=== PATIENT | male | born 1960 | race Caucasian/White ===

== ENCOUNTER 2020-04-05 14:48 | Outpatient (REF) | payer OTHER, SELFPAY | END 2020-04-05 14:49 | disposition home or self-care (01) | LOC: HO.HAP 14:48 | PROVIDERS: Visit Provider Internal Medicine | DX: Z46.1 Encounter for fitting and adjustment of hearing aid (principal) | CPT/HCPCS: V5266 ==

== ENCOUNTER 2020-05-07 12:16 | Outpatient (REF) | payer OTHER, SELFPAY | END 2020-05-07 12:17 | disposition home or self-care (01) | LOC: HO.LAB 12:16 | PROVIDERS: Visit Provider Internal Medicine | DX: Z20.822 Contact with and (suspected) exposure to COVID-19 (principal) | CPT/HCPCS: 36415; C9803; U0003; U0005 ==

== ENCOUNTER 2020-05-09 14:02 | Outpatient (REF) | payer OTHER, SELFPAY | END 2020-05-09 14:03 | disposition home or self-care (01) | LOC: HO.HAP 14:02 | PROVIDERS: Visit Provider Internal Medicine | DX: Z46.1 Encounter for fitting and adjustment of hearing aid (principal) | CPT/HCPCS: V5266 ==

== ENCOUNTER 2020-06-04 09:01 | Outpatient (REF) | payer OTHER, SELFPAY | END 2020-06-04 09:02 | disposition home or self-care (01) | LOC: HO.LAB 09:01 | PROVIDERS: Visit Provider Internal Medicine | DX: Z20.822 Contact with and (suspected) exposure to COVID-19 (principal) | CPT/HCPCS: 36415; C9803; U0003; U0005 ==

== ENCOUNTER 2020-07-03 10:22 | Outpatient (REF) | payer OTHER, SELFPAY ==
[2020-07-03 11:29] LABS: Alanine Aminotransferase 25 U/L (0-40); Albumin Level 4.3 g/dL (3.5-5.0); Alkaline Phosphatase 50 U/L (39-117); Anion Gap 13 (12-20); Aspartate Amino Transferase 19 U/L (5-37); Bilirubin Total 0.7 mg/dL (0.0-1.0); Blood Urea Nitrogen 12 mg/dL (9-16); Calcium 9.2 mg/dL (8.4-10.2); Carbon Dioxide 29 mmol/L (22-29); Chloride 104 mmol/L (96-108); Cholesterol 233 mg/dL; Estimated Glomerular Filt Rate > 60; Glucose Fasting 103 mg/dL (60-99); HDL Cholesterol 36 mg/dL; LDL Cholesterol Calculated 136 mg/dl; Potassium 4.7 mmol/L (3.3-5.1); Sodium 141 mmol/L (135-145); Triglycerides 306 mg/dL
[2020-07-03 12:01] LABS: Folate 9.4 ng/mL (> or = 4.0); Vitamin B12 299 pg/mL (200-900)
[2020-07-03 12:06] LABS: Creatinine Urine 143.97 mg/dL; Microalbum/Creatinine Ratio Ur 10.4 ug/mg cr
== END 2020-07-03 10:23 | disposition home or self-care (01) ==
LOC: HO.LAB 10:22
PROVIDERS: PCP Internal Medicine; Visit Provider Internal Medicine
DX: E11.9 Type 2 diabetes mellitus without complications (principal); E78.5 Hyperlipidemia, unspecified
CPT/HCPCS: 36415; 80053; 80061; 82043; 82607; 82746

== ENCOUNTER 2020-09-17 12:09 | Outpatient (REF) | payer OTHER, SELFPAY ==
--- NOTE | 2020-09-17 13:52 | MHC.AU.FUR ---
Hearing Instrument Follow-Up Date of Visit: 09/17/20 Milk Bottling Machine Operator Used: Not Applicable Right Ear: Electronic Instrument Trades Worker: Elba Model: tradeNOW IQ i1600 P+ BTE-13 Serial Number: [id number] Repair Warranty: 04/09/2021 Loss and Damage Warranty: Battery Size: 13 Color: Bronze Tubing: Tube Lock Type of Dome: Type of Mold: Westone Shell - THE EARMOLD HAS BEEN MODIFIED BY PATIENT (OR OTHER) TO BE A CANAL STYLE. Type of Wax Guard: Dispensed By: [facility] Date of Fittin02/12/2018 Follow-Up Summary: Right hearing aid was dropped off. Noted said aid not working and earmold tubing broke. The hearing aid casing is severly damaged in several areas. The tubing is broken at the opening of earmold. The original order showed a shell style; however, the mold has been modified by someone (patient has not been seen in this office since day of fitting in 2018) to be a canal style. Sending right aid out for repair under warranty. Right ear mold re-tubed and in ear mold drawer. ADVISE MAKING NEW EARMOLD(S) 12 batteries dispensed today. Recommendations: Sending right aid out for repair under warranty. Right ear mold re-tubed and in ear mold drawer. Call when repair in. Diagnosis Code(s): Primary Diagnosis: H90.6 Mixed Hearing Loss, Bilateral Services Performed: Number of Individual Battery Cells: 12 YOO Non-Quantity Charges: HACHECKM (MH>1 yr or new to us) Face to Face appointment Signature: Provider: Saida Dias, CCC-A
== END 2020-09-17 12:10 | disposition home or self-care (01) ==
LOC: HO.HAP 12:09
PROVIDERS: Visit Provider Internal Medicine
DX: Z46.1 Encounter for fitting and adjustment of hearing aid (principal); H90.6 Mixed conductive and sensorineural hearing loss, bilateral
CPT/HCPCS: 92592; V5266

== ENCOUNTER 2020-09-27 10:26 | Outpatient (REF) | payer OTHER, SELFPAY ==
--- NOTE | 2020-09-27 12:26 | MHC.AU.HFU ---
Hearing Instrument Follow-Up- Binaural Date of Visit: 09/27/20 Input Output Clerk Used: Luxembourgish- In Person Right Ear: News Production Supervisor: Elba Model: [place] IQ i1600 P+ BTE-13 Serial Number: [id number] Repair Warranty: 04/09/2021 Battery Size: 13 Color: Bronze Tubing: Tube Lock Type of Mold: Westone Shell - THE EARMOLD HAS BEEN MODIFIED BY PATIENT (OR OTHER) TO BE A CANAL STYLE. Dispensed By: [facility] Date of Fittin02/12/2018 Left Ear: News Production Supervisor: Elba Model: [place] IQ i1600 P+ BTE-13 Serial Number: [id number] Repair Warranty: 04/09/2017 Battery Size: 13 Color: Bronze Tubing: Tube Lock Type of Mold: Westone Shell Dispensed By: [facility] Date of Fittin02/12/2018 Follow-Up Summary: Patient picked up the LEFT repaired aid. When looking at aids, both aids had blue markers and patient was wearing the [id number] aid in the left ear with an old 1/2 shell mold. The re-tubed mold brought in the [id number] was also for the left ear. Patient said he had switched the aids when the one brought in to be repaired on 09/17/20, but does not have the right earmold. Took impressions for both ears today without complication and ordered Canal Shell molds requesting to made more like a Half Shell. Patient is using the [id number] aid on the left ear with the old earmold. Patient has the right aid and will bring to next visit. BOTH AIDS SET TO LAST 2018 SETTINGS. Recommendations: Recommendations (Other): Schedule EM fitting when received. Patient has the right aid and will bring to next visit. Diagnosis Code(s): Primary Diagnosis: H90.6 Mixed Hearing Loss, Bilateral Services Performed: Ear Impression (Quantity): 2 Signature: Provider: Saida Dias, [facility]
== END 2020-09-27 10:27 | disposition home or self-care (01) ==
LOC: HO.HAP 10:26
PROVIDERS: Visit Provider Internal Medicine
DX: Z46.1 Encounter for fitting and adjustment of hearing aid (principal); H90.6 Mixed conductive and sensorineural hearing loss, bilateral
CPT/HCPCS: V5275

== ENCOUNTER 2020-10-23 09:04 | Outpatient (REF) | payer OTHER, SELFPAY | END 2020-10-23 09:05 | disposition home or self-care (01) | LOC: HO.HAP 09:04 | PROVIDERS: Visit Provider Internal Medicine | DX: Z46.1 Encounter for fitting and adjustment of hearing aid (principal); H90.6 Mixed conductive and sensorineural hearing loss, bilateral | CPT/HCPCS: V5264; V5266 ==

== ENCOUNTER 2021-01-07 21:13 | Inpatient (IN) | payer OTHER, SELFPAY ==
[2021-01-07 21:20] VITALS: BP 161/98; PULSE 108; RESP 16; O2SAT 96; BMI 24.6
--- NOTE | 2021-01-07 21:20 | ECG_ITS ---
Test Reason : AFIB Blood Pressure : / mmHG Vent. Rate : 111 BPM Atrial Rate : 098 BPM P-R Int : 000 ms QRS Dur : 102 ms QT Int : 356 ms P-R-T Axes : 000 028 012 degrees QTc Int : 484 ms Atrial fibrillation with rapid ventricular response with premature ventricular or aberrantly conducted complexes Nonspecific T wave abnormality Abnormal ECG When compared with ECG of 18-JAN-2019 15:17, Atrial fibrillation has replaced Sinus rhythm Vent. rate has increased BY 50 BPM Nonspecific T wave abnormality now evident in Inferior leads Nonspecific T wave abnormality now evident in Lateral leads Referred By: Konrad Smalls Electronically Signed By:DEEJAY MIRANDA MD
--- NOTE | 2021-01-07 21:34 | ED_ITS ---
HPI - Arrhythmia/Palpitations General Chief Complaint: Arrhythmia/Palpitations Stated Complaint: Dizzines, nausea, vomiting Time Seen by Provider: 01/07/21 21:32 Source: patient Mode of arrival: ambulatory Limitations: no limitations and language barrier History of Present Illness HPI narrative: Patient history of hypertension hyperlipidemia Diabetes TIAs been having off and on palpitations for last 2 months and chest discomfort . Has not seen e commerce web developer lately last visit was 6 months ago for last 4 hours patient having more palpitations and shortness of breath patient checked his blood pressure was elevated along with heart rate. On arrival patient was tachycardic with AFib with heart rate reaching 118 , nauseated and had cold sweats patient has not seen any e commerce web developer for this palpitation on arrival monitor car operator showed heart rate of 108 atrial fibrillation Related Data Previous Rx's Medication Instructions Recorded aspirin 81 mg tablet,delayed 81 mg PO DAILY 90 Days #90 tab 04/05/20 release (Adult Low Dose Aspirin) atorvastatin 80 mg tablet 80 mg PO BEDTIME 90 Days #90 tab 04/05/20 carvedilol 12.5 mg tablet 12.5 mg PO BID 90 Days #180 tab 04/05/20 fenofibrate 54 mg tablet 54 mg PO DAILY 90 Days #90 tab 04/05/20 lisinopril 20 mg tablet 20 mg PO DAILY 90 Days #90 tab 04/05/20 meclizine 25 mg tablet 25 mg PO TID PRN 30 Days #90 tab 04/05/20 metformin 500 mg tablet 500 mg PO BID 90 Days #180 tab 04/05/20 metoprolol tartrate 100 mg tablet 100 mg PO BID 90 Days #180 tab 04/05/20 ropinirole 0.5 mg tablet 0.5 mg PO BEDTIME 90 Days #90 tab 04/05/20 trazodone 50 mg tablet 50 mg PO BEDTIME PRN 90 Days #90 04/05/20 tab ezetimibe 10 mg tablet 10 mg PO DAILY 90 Days #90 tab 09/17/20 Allergies Allergy/AdvReac Type Severity Reaction Status Date / Time No Known Allergies Allergy Verified 04/05/20 15:28 [No Known Allergies*] Review of Systems Review of Systems: Yes all other systems are reviewed and are negative PMFSH Past Medical History Medical History CVA (cerebral vascular accident) Diabetes mellitus Essential hypertension Mixed hyperlipidemia Restless leg syndrome Vertigo Surgical History No pertinent past surgical history Family History Family History Father CVD (cardiovascular disease) Hypertension Mother Hypertension Stroke Sister CVD (cardiovascular disease) Hypertension Son No problems noted. Daughter No problems noted. Social History Social History Alcohol intake: never Patient Tobacco Use Status: Never used Tobacco Use of substances other than those prescribed or required for medical reasons: No Advance Directives: No Advance Directives Information Provided: No Physical Exam Vital Signs: Vital Signs: Last Vital Signs Temp 98.6 F 01/08/21 00:38 Pulse 89 01/08/21 00:38 Resp 18 01/08/21 00:38 BP 112/75 01/08/21 00:38 Pulse Ox 97 01/08/21 00:38 Body Mass Index 24.6 Appearance: Alert. Oriented X3. No acute distress. Eyes: No pallor or icterus ENT: Pharynx normal. Oral Mucosa moist Neck: Normal inspection. Neck supple. CVS: Irregularly irregular tachycardia. Pulses normal. Respiratory: No respiratory distress. Equal air entry bilateral, no wheezing/rales/rhonchi Abdomen: Soft and nontender. Bowel sounds are present, no mass palpable, no CVA tenderness Skin: Skin warm and dry. Normal skin color. Normal skin turgor. Extremities: No lower extremity edema. No calf tenderness Neuro: Oriented X 3. No motor deficit. No sensory deficit.No cerebellar signs , cranial nerves II-XII intact MDM - Arrhythmia/Palpitations MDM Narrative Medical decision making narrative: Patient with new onset of atrial fibrillation chads 2 Vasc score of 4 started on Eliquis patient heart rate him approved after 1 dose of Cardizem at this time patient has atrial fibrillation with heart rate staying less than 100 denies any chest pain will admit patient for new onset atrial fibrillation, patient already on metoprolol 100 mg twice daily Lab Data Attestation: I reviewed the patient's lab results. Result diagrams: 01/07/21 21:36 01/07/21 21:36 Labs: Lab Results 1001/07/21 01/07/21 Range/Units 21:36 21:36 21:36 WBC 8.3 (4.8-10.8) X10*3/uL RBC 4.73 (4.60-5.80) X10*6/uL Hgb 13.7 L (14.0-18.0) g/dl Hct 41.4 L (42-52) % MCV 87.5 (80-98) fL MCH 29.0 (27.0-33.0) pg MCHC 33.1 (31.0-36.0) g/dl RDW 12.6 (11.0-16.0) % Plt Count 244 (160-400) X10*3/uL MPV 11.7 (9.4-12.4) fL Immature Gran % (Auto) 0.2 (0.0-0.4) % Neut % (Auto) 62.8 (45-73) % Lymph % (Auto) 28.5 (20-40) % [place] % (Auto) 6.1 (2-11) % Eos % (Auto) 2.0 (0-4) % Baso % (Auto) 0.4 (0-2) % Lymph # (Auto) 2.4 (1.2-4.9) X10*3/uL [place] # (Auto) 0.5 (0.1-1.2) X10*3/uL Eos # (Auto) 0.2 (0.0-0.4) X10*3/uL Baso # (Auto) 0.0 (0.0-0.2) X10*3/uL Abs Immat Gran (auto) 0.02 (0.00-0.03) X10*3/uL Absolute Neuts (auto) 5.2 (2.0-8.3) X10*3/uL Absolute Nucleated RBC 0.000 (0.0-0.012) X10*3/uL Nucleated RBC % (auto) 0.0 (0.0-0.2) /100WBC PT (9.9-13.0) SEC INR (0.9-1.1) APTT (24.1-38.0) SEC Sodium 140 (135-145) mmol/L Potassium 4.0 (3.3-5.1) mmol/L Chloride 106 (96-108) mmol/L Carbon Dioxide 26 (22-29) mmol/L Anion Gap 12 (12-20) BUN 12 (9-16) mg/dL Creatinine 1.02 (0.5-1.4) mg/dL Estim Creat Clear Calc 70.3 Estimated GFR > 60 Random Glucose 111 (60-115) mg/dL Calcium 9.4 (8.4-10.2) mg/dL Total Bilirubin 0.7 (0.0-1.0) mg/dL AST 18 (5-37) U/L ALT 22 (0-40) U/L Alkaline Phosphatase 53 (39-117) U/L Troponin I High Sens < 3.5 (<3.5-35.0) ng/L Total Protein 8.4 H (6.5-8.0) g/dL Albumin 4.5 (3.5-5.0) g/dL COVID-19 (DEYANIRA) (Negative) COVID-19 Clin Com 01/07/21 01/08/21 Range/Units 21:36 00:37 WBC (4.8-10.8) X10*3/uL RBC (4.60-5.80) X10*6/uL Hgb (14.0-18.0) g/dl Hct (42-52) % MCV (80-98) fL MCH (27.0-33.0) pg MCHC (31.0-36.0) g/dl RDW (11.0-16.0) % Plt Count (160-400) X10*3/uL MPV (9.4-12.4) fL Immature Gran % (Auto) (0.0-0.4) % Neut % (Auto) (45-73) % Lymph % (Auto) (20-40) % [place] % (Auto) (2-11) % Eos % (Auto) (0-4) % Baso % (Auto) (0-2) % Lymph # (Auto) (1.2-4.9) X10*3/uL [place] # (Auto) (0.1-1.2) X10*3/uL Eos # (Auto) (0.0-0.4) X10*3/uL Baso # (Auto) (0.0-0.2) X10*3/uL Abs Immat Gran (auto) (0.00-0.03) X10*3/uL Absolute Neuts (auto) (2.0-8.3) X10*3/uL Absolute Nucleated RBC (0.0-0.012) X10*3/uL Nucleated RBC % (auto) (0.0-0.2) /100WBC PT 11.3 (9.9-13.0) SEC INR 1.0 (0.9-1.1) APTT 27.8 (24.1-38.0) SEC Sodium (135-145) mmol/L Potassium (3.3-5.1) mmol/L Chloride (96-108) mmol/L Carbon Dioxide (22-29) mmol/L Anion Gap (12-20) BUN (9-16) mg/dL Creatinine (0.5-1.4) mg/dL Estim Creat Clear Calc Estimated GFR Random Glucose (60-115) mg/dL Calcium (8.4-10.2) mg/dL Total Bilirubin (0.0-1.0) mg/dL AST (5-37) U/L ALT (0-40) U/L Alkaline Phosphatase (39-117) U/L Troponin I High Sens (<3.5-35.0) ng/L Total Protein (6.5-8.0) g/dL Albumin (3.5-5.0) g/dL COVID-19 (DEYANIRA) Negative (Negative) COVID-19 Clin Com See Note ECG Data Attestation: I personally reviewed and interpreted this ECG as follows: Interpretation: Atrial fibrillation with heart rate of 111 beats per minute nonspecific ST T wave changes no acute ischemia Discharge Plan Discharge Clinical Impression: Atrial fibrillation with rapid ventricular response Chest pain Qualifiers: Chest pain type: precordial pain Qualified Code(s): R07.2 - Precordial pain Patient Disposition: Admitted As Inpatient
[2021-01-07 21:41] LABS: MANUAL DIFF FLAG NO
[2021-01-07 21:42] LABS: Basophils Percent Auto 0.4 % (0-2); Eosinophils Absolute Auto 0.2 X10*3/uL (0.0-0.4); Hematocrit 41.4 % (42-52); Hemoglobin 13.7 g/dl (14.0-18.0); Imm Gran Abs Auto 0.02 X10*3/uL (0.00-0.03); Imm Gran Pct Auto 0.2 % (0.0-0.4); Lymphocytes Absolute Auto 2.4 X10*3/uL (1.2-4.9); Lymphocytes Percent Auto 28.5 % (20-40); Mean Corpuscular HGB Conc 33.1 g/dl (31.0-36.0); Mean Corpuscular Volume 87.5 fL (80-98); Mean Platelet Volume 11.7 fL (9.4-12.4); Monocytes Absolute Auto 0.5 X10*3/uL (0.1-1.2); Monocytes Percent Auto 6.1 % (2-11); Neutrophils Absolute Auto 5.2 X10*3/uL (2.0-8.3); Neutrophils Percent Auto 62.8 % (45-73); Platelet Count 244 X10*3/uL (160-400); Red Blood Count 4.73 X10*6/uL (4.60-5.80); Red Cell Distribution Width 12.6 % (11.0-16.0); White Blood Count 8.3 X10*3/uL (4.8-10.8)
[2021-01-07 21:47] LABS: Prothrombin Time 11.3 SEC (9.9-13.0)
[2021-01-07 21:50] VITALS: BP 157/91; PULSE 105; RESP 20; TEMP 36.5; O2SAT 97
[2021-01-07 21:50] LABS: Partial Thromboplastin Time 27.8 SEC (24.1-38.0)
[2021-01-07 21:57] VITALS: BP 157/91; PULSE 118
[2021-01-07 21:57] LABS: Alanine Aminotransferase 22 U/L (0-40); Albumin Level 4.5 g/dL (3.5-5.0); Alkaline Phosphatase 53 U/L (39-117); Anion Gap 12 (12-20); Aspartate Amino Transferase 18 U/L (5-37); Bilirubin Total 0.7 mg/dL (0.0-1.0); Blood Urea Nitrogen 12 mg/dL (9-16); Calcium 9.4 mg/dL (8.4-10.2); Carbon Dioxide 26 mmol/L (22-29); Chloride 106 mmol/L (96-108); Creatinine Clr Calc Pharmacy 70.3; Estimated Glomerular Filt Rate > 60; Glucose Random 111 mg/dL (60-115); Sodium 140 mmol/L (135-145); Total Protein 8.4 g/dL (6.5-8.0)
[2021-01-07] MEDS: Apixaban 5 MG TABLET PO (21:57)
[2021-01-07] MEDS: dilTIAZem HCL 50 MG/10 ML VIAL 20 MG IVPUSH (21:57)
[2021-01-07] MEDS: Aspirin Enteric Coated 81 MG TABLET.DR 162 MG PO (21:57)
[2021-01-07] MEDS: Nitroglycerin 2 % Oint 1 GM Packet 0.5 INCH TRANSDERMA (21:58)
[2021-01-07 22:03] LABS: Troponin-I High Sensitivity < 3.5 ng/L (<3.5-35.0)
[2021-01-07 22:29] VITALS: BP 117/79; PULSE 64; RESP 17; O2SAT 97
[2021-01-07 23:55] VITALS: BP 120/90; PULSE 90; RESP 18; O2SAT 97
[2021-01-08] VITALS (8 sets, daily range): BP systolic 105–140; BP diastolic 66–107; PULSE 55–89; RESP 14–18; TEMP 36.4–37; O2SAT 97–98
--- NOTE | 2021-01-08 00:27 | P.HPHOSP_ITS ---
History of Present Illness Date of Service: 01/08/21 Chief Complaint: Chest pain/palpitations 61-year-old male with a past medical history of hypertension, hyperlipidemia, diabetes, CVA, restless leg syndrome presented to the hospital with a chief complaint of chest pain/palpitations. Patient reports that over the past 2 months he has been having intermittent episodes of palpitations, denies any associated lightheadedness or dizziness. But has intermittent chest discomfort. Over the past 2 days he has been having increased episodes of chest pain and palpitations; decided to come to the ER for further evaluation. Chest pain is aching in nature, nonradiating, no associated sweating nausea or vomiting. Denies any chest pain at the time of my entry. Denies any fever chills cough. Denies any recent travel or sick contacts. Review of all other systems is negative except mentioned above ER course: Per ER team patient on presentation noted to have tachycardia and EKG showed new onset AFib with rapid ventricular response up to 130; patient was given 1 time IV Cardizem with mild improvement in the heart rate. Troponin negative. EKG nonischemic. Admitted to the hospital for further management. [facility] Medical History CVA (cerebral vascular accident) Diabetes mellitus Essential hypertension Mixed hyperlipidemia Restless leg syndrome Vertigo Family History Father CVD (cardiovascular disease) Hypertension Mother Hypertension Stroke Sister CVD (cardiovascular disease) Hypertension Son No problems noted. Daughter No problems noted. Pertinent family history: As mentioned above Surgical History No pertinent past surgical history Social History Alcohol intake: never Patient Tobacco Use Status: Never used Tobacco Use of substances other than those prescribed or required for medical reasons: No Advance Directives: No Advance Directives Information Provided: No Meds Allergies Allergy/AdvReac Type Severity Reaction Status Date / Time No Known Allergies Allergy Verified 04/05/20 15:28 [No Known Allergies*] Active Medications: Current Medications Apixaban (Apixaban 5 Mg Tablet) 5 mg PO BID CAROLINE Diltiazem HCl (Diltiazem Hcl 30 Mg Tablet) 30 mg PO QID CAROLINE; Protocol Pharmacy Consult (Consult Rx Perform Med Rec) 1 each MISCELLANE ONCE PRN PRN Reason: Consult order Sodium Chloride (0.9 % Sodium Chloride Flush 3 Ml Syringe) 3 ml IVFLUSH QSHIFT CAROLINE Physical Exam Vital Signs and Narrative: Vital Signs: Last Vital Signs Temp 97.7 F 01/07/21 21:50 Pulse 90 01/07/21 23:55 Resp 18 01/07/21 23:55 BP 120/90 H 01/07/21 23:55 Pulse Ox 97 01/07/21 23:55 Body Mass Index 24.6 Gen: Appears be in no acute distress HEENT: NCAT, Moist mucosa. Pulmonary: Vesicular breath sounds, fair air entry CVS: Normal S1-S2 Abdomen: BS+, Soft, Nontender Extremities: Warm well perfused Neuro: Alert and awake. Results Labs CBC and Chem 7: 01/07/21 21:36 01/07/21 21:36 Labs: Laboratory Results - last 24 hr 01/07/21 01/07/21 01/07/21 21:36 21:36 21:36 MCV 87.5 MCH 29.0 MCHC 33.1 RDW 12.6 Plt Count 244 MPV 11.7 Immature Gran % (Auto) 0.2 Neut % (Auto) 62.8 Lymph % (Auto) 28.5 [place] % (Auto) 6.1 Eos % (Auto) 2.0 Baso % (Auto) 0.4 Lymph # (Auto) 2.4 [place] # (Auto) 0.5 Eos # (Auto) 0.2 Baso # (Auto) 0.0 Abs Immat Gran (auto) 0.02 Absolute Neuts (auto) 5.2 Absolute Nucleated RBC 0.000 Nucleated RBC % (auto) 0.0 PT INR APTT Anion Gap 12 Estim Creat Clear Calc 70.3 Estimated GFR > 60 Random Glucose 111 Calcium 9.4 Total Bilirubin 0.7 AST 18 ALT 22 Alkaline Phosphatase 53 Troponin I High Sens < 3.5 Total Protein 8.4 H Albumin 4.5 01/07/21 21:36 MCV MCH MCHC RDW Plt Count MPV Immature Gran % (Auto) Neut % (Auto) Lymph % (Auto) [place] % (Auto) Eos % (Auto) Baso % (Auto) Lymph # (Auto) [place] # (Auto) Eos # (Auto) Baso # (Auto) Abs Immat Gran (auto) Absolute Neuts (auto) Absolute Nucleated RBC Nucleated RBC % (auto) PT 11.3 INR 1.0 APTT 27.8 Anion Gap Estim Creat Clear Calc Estimated GFR Random Glucose Calcium Total Bilirubin AST ALT Alkaline Phosphatase Troponin I High Sens Total Protein Albumin Assessment and Plan (1) Afib: Status: Acute (2) Diabetes mellitus: Qualifiers: Diabetes mellitus type: type 2 Diabetes mellitus group home insulin use: without group home use Diabetes mellitus complication status: without complication Qualified Code(s): E11.9 - Type 2 diabetes mellitus without complications Status: Acute (3) Chest pain: Status: Acute 61-year-old male with a past medical history of hypertension, hyperlipidemia, diabetes, CVA, restless leg syndrome presented to the hospital with a chief complaint of chest pain/palpitations. Chest pain: Currently resolved. Telemetry cycle cardiac enzymes. Sublingual nitroglycerin p.r.n. AFib with rapid ventricular response: Heart rate improving and diltiazem. Will give the patient on diltiazem 30 q.i.d.. Cardiology consult. Patient was started on Eliquis in the ER. Will continue. Echocardiogram TSH Diabetes: Hold home metformin. Insulin sliding scale. DVT prophylaxis: Patient on Eliquis Code status: Full code Quality Stroke Does the patient have a stroke diagnosis?: No VTE Prior VTE?: No VTE Risk Level:: Medical - moderate - high VTE Device Contraindication: Treatment Not Indicated VTE Drug Contraindication: N/A - Med Ordered
--- NOTE | 2021-01-08 01:06 | PC.NURSE ---
Pt alert and oriented x4, calm and cooperative. Pt independently positions himself without difficulties. Pt denies chest pain, denies chest palpitations. Pt heart rate remains WNL, rhythm remains irregular, MD aware. IV remains intact infusing fluids at this time. Vitals remain stable. Pt asleep in stretcher at this time. Will continue to monitor.
[2021-01-08 01:08] LABS: COVID-19 Test Negative (Negative); IDNOW Serial# 9DD0AD1C
[2021-01-08] MEDS: 0.9 % Sodium Chloride 1,000 ML 100 ML IVCONT ×2 (01:19→11:20)
--- NOTE | 2021-01-08 01:36 | PC.NURSE ---
Med rec completed using IID phone ciaio lumite injector Jason #[id number].
--- NOTE | 2021-01-08 06:37 | PC.NURSE ---
Pt remains alert and oriented x4, calm and cooperative. Pt denies pain. Pt denies heart palpitations. Vitals remain stable. IV intact infusing fluids without issues. Tele monitor irregular afib noted at controlled rate, MD aware. Pt sleeping most of shift. Pt resting in stretcher at this time without complaints, will continue to monitor.
[2021-01-08 07:15] LABS: MANUAL DIFF FLAG NO
[2021-01-08 07:22] LABS: Basophils Percent Auto 0.3 % (0-2); Eosinophils Absolute Auto 0.1 X10*3/uL (0.0-0.4); Eosinophils Percent Auto 1.9 % (0-4); Hematocrit 37.9 % (42-52); Hemoglobin 12.6 g/dl (14.0-18.0); Imm Gran Abs Auto 0.03 X10*3/uL (0.00-0.03); Imm Gran Pct Auto 0.4 % (0.0-0.4); Lymphocytes Absolute Auto 2.8 X10*3/uL (1.2-4.9); Lymphocytes Percent Auto 39.1 % (20-40); Mean Corpuscular HGB Conc 33.2 g/dl (31.0-36.0); Mean Corpuscular Hemoglobin 29.4 pg (27.0-33.0); Mean Corpuscular Volume 88.6 fL (80-98); Mean Platelet Volume 11.7 fL (9.4-12.4); Monocytes Absolute Auto 0.5 X10*3/uL (0.1-1.2); Monocytes Percent Auto 6.4 % (2-11); Neutrophils Absolute Auto 3.7 X10*3/uL (2.0-8.3); Neutrophils Percent Auto 51.9 % (45-73); Platelet Count 226 X10*3/uL (160-400); Red Blood Count 4.28 X10*6/uL (4.60-5.80); Red Cell Distribution Width 12.9 % (11.0-16.0); White Blood Count 7.2 X10*3/uL (4.8-10.8)
[2021-01-08 07:32] LABS: Glucose, Whole Blood 99 mg/dL (60-115)
[2021-01-08 07:46] LABS: Anion Gap 11 (12-20); Blood Urea Nitrogen 11 mg/dL (9-16); Calcium 8.8 mg/dL (8.4-10.2); Carbon Dioxide 26 mmol/L (22-29); Chloride 108 mmol/L (96-108); Creatinine Clr Calc Pharmacy 84.4; Estimated Glomerular Filt Rate > 60; Glucose Random 103 mg/dL (60-115); Potassium 4.6 mmol/L (3.3-5.1); Sodium 140 mmol/L (135-145)
--- NOTE | 2021-01-08 08:01 | PC.NURSE ---
pt is a/o x 3 no sob/jodi noted, pt aware of plan of care for admission to hosp.
[2021-01-08] MEDS: 0.9 % Sodium Chloride Flush 3 ML SYRINGE IVFLUSH (08:02)
--- NOTE | 2021-01-08 08:31 | PHA.MEDREC ---
Pharmacy Consult ? Medication Reconciliation Pharmacy has completed the medication reconciliation. Patient report that he was switch from metoprolol is carvedilol. Harriet Rushing, EmmyD
[2021-01-08] MEDS: dilTIAZem HCL 30 MG TABLET PO ×2 (09:02→13:35)
[2021-01-08] MEDS: Apixaban 5 MG TABLET PO (09:02)
[2021-01-08 11:40] LABS: Glucose, Whole Blood 103 mg/dL (60-115)
--- NOTE | 2021-01-08 12:26 | P.CONCA_ITS ---
History of Present Illness History of Present Illness Date of Service: 01/08/21 Requesting physician: Davis Landa Consult reason: atrial fibrillation Chief complaint: Afib with RVR Narrative: I was consulted to see Oli cardiology consultation today for new onset atrial fibrillation as well as chest discomfort. Is a 61-year-old ma le with prior history of stroke in 2018, hypertension, diet-controlled diabetes present hospital last night with complaints of retrosternal chest pressure along with irregular heartbeat and palpitations. Patient when he came to the Emergency was noted to be in atrial fibrillation rapid response. Was treated with IV therapy and subsequently converted to sinus rhythm. Time of conversion is not known. Her patient this morning is feeling well with no recurrent chest pain. Chest pain resolved very quickly. His initial troponin was less than 3.5. He said about few days ago he had palpitations as well but did not come to the emergency room at did not have any chest pain. He has not ever had atrial fibrillation the past. Currently on aspirin therapy. His blood pressure as per him is difficult control in the past. Currently taking all his medications. Denies any alcohol or drug abuse. Denies exertional chest pain. Review of Systems Constitutional: Constitutional: Reports no additional constitutional complaints Eyes: Eyes: Reports no additional eye complaints Cardiovascular: Cardiovascular: Reports chest pain, Denies leg edema, Denies lightheadedness, Denies Loss of Consciousness, Reports palpitations and Denies dyspnea Respiratory: Respiratory: Reports no additional respiratory complaints and Denies dyspnea Gastrointestinal: Gastrointestinal: Reports no additional gastrointestinal complaints Genitourinary: Genitourinary: Reports no additional male genitourinary complaints Musculoskeletal: Musculoskeletal: Reports no additional musculoskeletal complaints Integumentary/Breasts: Skin/Breast: Reports system reviewed and no additional complaints, except as docu Neurologic: Reports system reviewed and no additional complaints, except as documented Psychiatric: Psychiatric: Reports no additional psychiatric complaints Endocrine: Endocrine: Reports no additional endocrine complaints and Reports palpitations Hematologic/Lymphatic: Hematologic/Lymphatic: Reports no additional hematologic/lymphatic complaints Allergic/Immunologic: Allergic/Immunologic: Reports no additional allergic/immunologic complaints [facility] Past Medical History Medical History (Updated 01/08/21 @ 12:30 by Rocky Almanza MD) CVA (cerebral vascular accident) Diabetes mellitus Essential hypertension Mixed hyperlipidemia Paroxysmal atrial fibrillation Restless leg syndrome Vertigo Family History Family History Father CVD (cardiovascular disease) Hypertension Mother Hypertension Stroke Sister CVD (cardiovascular disease) Hypertension Son No problems noted. Daughter No problems noted. Surgical History Surgical History No pertinent past surgical history Social History Social History Alcohol intake: never Patient Tobacco Use Status: Never used Tobacco Use of substances other than those prescribed or required for medical reasons: No Advance Directives: No Advance Directives Information Provided: No Meds Allergies Allergy/AdvReac Type Severity Reaction Status Date / Time No Known Allergies Allergy Verified 04/05/20 15:28 [No Known Allergies*] Active Medications: Current Medications Acetaminophen (Acetaminophen 325 Mg Tablet) 650 mg PO Q6H PRN PRN Reason: Pain, Mild (Pain Scale 1-3) Apixaban (Apixaban 5 Mg Tablet) 5 mg PO BID [facility] Last Admin: 01/08/21 09:02 Dose: 5 mg Documented by: Dextrose (Dextrose 50 % 25 Gm/50 Ml Vial) 25 gm IVPUSH Q15M PRN; Protocol PRN Reason: per Hypoglycemia Standing Ord. Diltiazem HCl (Diltiazem Hcl 30 Mg Tablet) 30 mg PO QID [facility]; Protocol Last Admin: 01/08/21 09:02 Dose: 30 mg Documented by: Glucose (Glucose Gel 15 Gm Gel..Gram.) 15 gm PO Q15M PRN; Protocol PRN Reason: per Hypoglycemia Standing Ord. Sodium Chloride (Ns) 1,000 mls @ 100 mls/hr IVCONT .Q10H [facility] Last Admin: 01/08/21 11:20 Dose: 100 mls/hr Documented by: Insulin Human Lispro (Insulin Lispro 100 Unit/Ml 3 Ml Vial) 0 unit SUBCUT QIDACHS [facility]; Protocol Last Admin: 01/08/21 11:50 Dose: Not Given Documented by: Melatonin (Melatonin 3 Mg Tablet) 6 mg PO BEDTIME PRN PRN Reason: Insomnia Pharmacy Consult (Consult Rx Perform Med Rec) 1 each MISCELLANE ONCE PRN PRN Reason: Consult order Senna (Sennosides 8.6 Mg Tablet) 17.2 mg PO BEDTIME PRN PRN Reason: Constipation Sodium Chloride (0.9 % Sodium Chloride Flush 3 Ml Syringe) 3 ml IVFLUSH QSHIFT [facility] Last Admin: 01/08/21 08:02 Dose: 3 ml Documented by: Home Medications Medication Instructions Recorded Confirmed Last Taken Type [id number] 0.4 mg-calcium 162 1 tab PO DAILY 01/08/21 01/08/21 01/07/21 History mg-iron 18 jl-dsxelfy-frcwwy tablet Physical Exam Vital Signs: Vital Signs: Last Vital Signs Temp 97.6 F 01/08/21 07:25 Pulse 60 01/08/21 11:06 Resp 14 01/08/21 11:06 BP 129/75 01/08/21 11:06 Pulse Ox 98 01/08/21 11:06 Body Mass Index 24.6 Const: General: cooperative, comfortable, no acute distress, alert and awake Nutritional Appearance: average body habitus Orientation/consciousness: patient oriented x3 Limitations: no limitations HENMT: Head: Yes normocephalic and Yes atraumatic Neck: Neck: Yes trachea midline, Yes supple and Yes no JVD Chest: Chest palpation & inspection: normal inspection of the chest Resp: Effort & Inspection: normal respiratory effort Auscultation: clear to auscultation bilaterally Cardio: Jugular venous distension: no JVD Palpation: normal PMI Rate: regular rate Rhythm: regular rhythm Heart sounds: S1 normal heart sound present, S2 normal heart sound present, no click, no gallops, no murmurs and no rubs GI: Auscultation: normal bowel sounds Skin: General skin exam: no rashes or lesions noted Neuro: General: patient oriented x3 and no focal motor deficits Extrem: General: Yes no clubbing, cyanosis or edema Psych: Appearance: grossly normal Results Labs and Meds Result diagrams: 01/08/21 06:57 01/08/21 06:57 Lab results: Laboratory Results - last 24 hr 01/07/21 01/07/21 01/07/21 21:36 21:36 21:36 WBC 8.3 RBC 4.73 Hgb 13.7 L Hct 41.4 L MCV 87.5 MCH 29.0 MCHC 33.1 RDW 12.6 Plt Count 244 MPV 11.7 Immature Gran % (Auto) 0.2 Neut % (Auto) 62.8 Lymph % (Auto) 28.5 [place] % (Auto) 6.1 Eos % (Auto) 2.0 Baso % (Auto) 0.4 Lymph # (Auto) 2.4 [place] # (Auto) 0.5 Eos # (Auto) 0.2 Baso # (Auto) 0.0 Abs Immat Gran (auto) 0.02 Absolute Neuts (auto) 5.2 Absolute Nucleated RBC 0.000 Nucleated RBC % (auto) 0.0 PT INR APTT Sodium 140 Potassium 4.0 Chloride 106 Carbon Dioxide 26 Anion Gap 12 BUN 12 Creatinine 1.02 Estim Creat Clear Calc 70.3 Estimated GFR > 60 POC Glucose Random Glucose 111 Calcium 9.4 Total Bilirubin 0.7 AST 18 ALT 22 Alkaline Phosphatase 53 Troponin I High Sens < 3.5 Total Protein 8.4 H Albumin 4.5 COVID-19 (DEYANIRA) COVID-19 Clin Com 01/07/21 01/08/21 01/08/21 21:36 00:37 06:57 WBC 7.2 RBC 4.28 L Hgb 12.6 L Hct 37.9 L MCV 88.6 MCH 29.4 MCHC 33.2 RDW 12.9 Plt Count 226 MPV 11.7 Immature Gran % (Auto) 0.4 Neut % (Auto) 51.9 Lymph % (Auto) 39.1 [place] % (Auto) 6.4 Eos % (Auto) 1.9 Baso % (Auto) 0.3 Lymph # (Auto) 2.8 [place] # (Auto) 0.5 Eos # (Auto) 0.1 Baso # (Auto) 0.0 Abs Immat Gran (auto) 0.03 Absolute Neuts (auto) 3.7 Absolute Nucleated RBC 0.000 Nucleated RBC % (auto) 0.0 PT 11.3 INR 1.0 APTT 27.8 Sodium Potassium Chloride Carbon Dioxide Anion Gap BUN Creatinine Estim Creat Clear Calc Estimated GFR POC Glucose Random Glucose Calcium Total Bilirubin AST ALT Alkaline Phosphatase Troponin I High Sens Total Protein Albumin COVID-19 (DEYANIRA) Negative COVID-19 Clin Com See Note 01/08/21 01/08/21 01/08/21 06:57 07:29 11:35 WBC RBC Hgb Hct MCV MCH MCHC RDW Plt Count MPV Immature Gran % (Auto) Neut % (Auto) Lymph % (Auto) [place] % (Auto) Eos % (Auto) Baso % (Auto) Lymph # (Auto) [place] # (Auto) Eos # (Auto) Baso # (Auto) Abs Immat Gran (auto) Absolute Neuts (auto) Absolute Nucleated RBC Nucleated RBC % (auto) PT INR APTT Sodium 140 Potassium 4.6 Chloride 108 Carbon Dioxide 26 Anion Gap 11 L BUN 11 Creatinine 0.85 Estim Creat Clear Calc 84.4 Estimated GFR > 60 POC Glucose 99 103 Random Glucose 103 Calcium 8.8 D Total Bilirubin AST ALT Alkaline Phosphatase Troponin I High Sens Total Protein Albumin COVID-19 (DEYANIRA) COVID-19 Clin Com EKG on admission shows atrial fibrillation rapid ventricular response with nonspecific ST changes Assessment and Plan (1) Paroxysmal atrial fibrillation: Status: Acute New onset atrial fibrillation with paroxysmal nature. Most likely causing his symptoms of palpitation chest discomfort. Currently converted back to sinus rhythm. Will benefit with rhythm control approach. Will follow as outpatient. Will require further workup with echocardiogram and outpatient Holter monitor. This will be scheduled. CHADSVASc score of 4. Start on oral anticoagulation therapy with Xarelto 20 mg daily. No need for aspirin therapy. Patient can be discharged home on his home dose of carvedilol. (2) Chest pain: Qualifiers: Chest pain type: precordial pain Qualified Code(s): R07.2 - Precordial pain Status: Acute Symptoms of chest discomfort associated with atrial fibrillation rapid ventricular response most likely due to atrial fibrillation. However obstructive CAD needs to be ruled out given his multiple risk factors. Outpatient myocardial perfusion imaging will be performed. Will follow up as outpatient. Thank you for allowing us to partake in his care Procedures Date of Service Date of Service: 01/08/21
--- NOTE | 2021-01-08 12:39 | PM.DS ---
DS: Providers Provider Date of Service: 01/08/21 Date of admission: 01/08/21 00:25 Primary care physician: [facility] Consults: 01/08/21 00:23 Consult to Cardiology Routine Consulting Provider: Rocky Almanza Reason for consultation: afib with rvr; chest pian DS: Diagnosis Discharge Diagnosis (1) Paroxysmal atrial fibrillation: Status: Acute (2) Chest pain: Status: Acute DS: Summary Hospital Course Hospital Course: Patient is 61 with CAD, diagetes, HLD, history of CVA. He presented with chest pain, palpitation and found to be in AFIB with RVR. Treated with IV cardizem in ED and subsequently converted to sinus rythm and remains so. Also given Eliquis. He has been evaluated by cardiology and advised to continue Coreg and Xaretlof for stroke prevention, CHADSVASc score is 4 Time Spent with Patient Time attestation: Total time spent providing and/or coordinating discharge services: Discharge coordination time: Greater than 30 minutes Quality: Stroke Does the patient have a stroke diagnosis?: No Physical Exam Vital Signs: Vital Signs: Last Vital Signs Temp 97.6 F 01/08/21 07:25 Pulse 60 01/08/21 11:06 Resp 14 01/08/21 11:06 BP 129/75 01/08/21 11:06 Pulse Ox 98 01/08/21 11:06 Body Mass Index 24.6 DS: Data Data Completed and Pending Labs on day of discharge: Laboratory Results - last 24 hr 01/07/21 01/07/21 01/07/21 21:36 21:36 21:36 WBC 8.3 RBC 4.73 Hgb 13.7 L Hct 41.4 L MCV 87.5 MCH 29.0 MCHC 33.1 RDW 12.6 Plt Count 244 MPV 11.7 Immature Gran % (Auto) 0.2 Neut % (Auto) 62.8 Lymph % (Auto) 28.5 [place] % (Auto) 6.1 Eos % (Auto) 2.0 Baso % (Auto) 0.4 Lymph # (Auto) 2.4 [place] # (Auto) 0.5 Eos # (Auto) 0.2 Baso # (Auto) 0.0 Abs Immat Gran (auto) 0.02 Absolute Neuts (auto) 5.2 Absolute Nucleated RBC 0.000 Nucleated RBC % (auto) 0.0 PT INR APTT Sodium 140 Potassium 4.0 Chloride 106 Carbon Dioxide 26 Anion Gap 12 BUN 12 Creatinine 1.02 Estim Creat Clear Calc 70.3 Estimated GFR > 60 POC Glucose Random Glucose 111 Calcium 9.4 Total Bilirubin 0.7 AST 18 ALT 22 Alkaline Phosphatase 53 Troponin I High Sens < 3.5 Total Protein 8.4 H Albumin 4.5 COVID-19 (DEYANIRA) COVID-19 Clin Com 01/07/21 01/08/21 01/08/21 21:36 00:37 06:57 WBC 7.2 RBC 4.28 L Hgb 12.6 L Hct 37.9 L MCV 88.6 MCH 29.4 MCHC 33.2 RDW 12.9 Plt Count 226 MPV 11.7 Immature Gran % (Auto) 0.4 Neut % (Auto) 51.9 Lymph % (Auto) 39.1 [place] % (Auto) 6.4 Eos % (Auto) 1.9 Baso % (Auto) 0.3 Lymph # (Auto) 2.8 [place] # (Auto) 0.5 Eos # (Auto) 0.1 Baso # (Auto) 0.0 Abs Immat Gran (auto) 0.03 Absolute Neuts (auto) 3.7 Absolute Nucleated RBC 0.000 Nucleated RBC % (auto) 0.0 PT 11.3 INR 1.0 APTT 27.8 Sodium Potassium Chloride Carbon Dioxide Anion Gap BUN Creatinine Estim Creat Clear Calc Estimated GFR POC Glucose Random Glucose Calcium Total Bilirubin AST ALT Alkaline Phosphatase Troponin I High Sens Total Protein Albumin COVID-19 (DEYANIRA) Negative COVID-19 Clin Com See Note 01/08/21 01/08/21 01/08/21 06:57 07:29 11:35 WBC RBC Hgb Hct MCV MCH MCHC RDW Plt Count MPV Immature Gran % (Auto) Neut % (Auto) Lymph % (Auto) [place] % (Auto) Eos % (Auto) Baso % (Auto) Lymph # (Auto) [place] # (Auto) Eos # (Auto) Baso # (Auto) Abs Immat Gran (auto) Absolute Neuts (auto) Absolute Nucleated RBC Nucleated RBC % (auto) PT INR APTT Sodium 140 Potassium 4.6 Chloride 108 Carbon Dioxide 26 Anion Gap 11 L BUN 11 Creatinine 0.85 Estim Creat Clear Calc 84.4 Estimated GFR > 60 POC Glucose 99 103 Random Glucose 103 Calcium 8.8 D Total Bilirubin AST ALT Alkaline Phosphatase Troponin I High Sens Total Protein Albumin COVID-19 (DEYANIRA) COVID-19 Clin Com Discharge Plan Discharge Patient Disposition: Home, Self-Care Discharge Diagnosis: AFIB Referrals: [place] [Primary Care Provider] - 1 Week Discharge Medications: New Xarelto 20 mg tablet 20 mg PO QPM Qty: 30 RF: 0 Continued ezetimibe 10 mg tablet 10 mg PO DAILY 90 Days Qty: 90 RF: 1 cz-gol-XU-Ki-Sn-wtnqnmq-lutein 0.4-162-18 mg Tablet 1 tab PO DAILY RF: 0 fenofibrate 54 mg tablet 54 mg PO DAILY 90 Days Qty: 90 RF: 3 carvedilol 12.5 mg tablet 12.5 mg PO BID 90 Days Qty: 180 RF: 3 atorvastatin 80 mg tablet 80 mg PO BEDTIME 90 Days Qty: 90 RF: 3 aspirin [Adult Low Dose Aspirin] 81 mg tablet,delayed release (DR/EC) 81 mg PO DAILY 90 Days Qty: 90 RF: 3 lisinopril 20 mg tablet 20 mg PO DAILY 90 Days Qty: 90 RF: 3 meclizine 25 mg tablet 25 mg PO TID PRN (Reason: dizziness) 30 Days Qty: 90 RF: 6 metformin 500 mg tablet 500 mg PO BID 90 Days Qty: 180 RF: 3 ropinirole 0.5 mg tablet 0.5 mg PO BEDTIME 90 Days Qty: 90 RF: 3 trazodone 50 mg tablet 50 mg PO BEDTIME PRN (Reason: sleep) 90 Days Qty: 90 RF: 3 Discharge Orders: Discharge Order (Routine); Ordered 01/08/21 Ordered By: Davis Landa Diet: advance to usual diet Activity on Discharge: As tolerated Stand Alone Forms: Patient Portal Discharge page Care Plan Goals: New afib Health Concerns: Take Coreg and Xarelto as recommended and follow up with your Doctor Plan of Treatment: take coreg and xarelto as recommended Assessment: as above Discharge Date/Time: 01/08/21 13:59
--- NOTE | 2021-01-08 13:39 | MHC.CM.PN ---
Patient is primarily Serbian speaking. 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 Patient lives alone, ambulates independently and had no services prior to coming to the hospital. No services anticipated to be needed. PCP verified. HCP information provided. Patient not interested in completing one at this time. Patient received Moderna Covid vaccine on 08/06 and 09/10. Patient will need help with transportation when medically stable. Continue to monitor for d/c needs.
--- NOTE | 2021-01-08 13:54 | MHC.CM.PN ---
Patient is ready for d/c. [facility] [place] up in front of the ER at 230pm. Patient and Ivy BANGURA aware.
== END 2021-01-08 13:59 | disposition home or self-care (01) | DRG 201 ==
LOC: HO.ED 01-08 01:16 → HO.EDOVER 01-08 01:26
PROVIDERS: Admitting Provider Hospitalist; Emergency Provider Internal Medicine; Visit Provider Internal Medicine
DX: I48.0 Paroxysmal atrial fibrillation (principal); E11.9 Type 2 diabetes mellitus without complications; G25.81 Restless legs syndrome; Z86.73 Personal history of transient ischemic attack (TIA), and cerebral infarction without residual deficits; Z20.822 Contact with and (suspected) exposure to COVID-19; Z79.82 Long term (current) use of aspirin; Z79.84 Long term (current) use of oral hypoglycemic drugs; Z79.899 Other long term (current) drug therapy
CPT/HCPCS: 36415; 80048; 80053; 82947; 84484; 85025; 85610; 85730; 87635; 93005; 99285

== ENCOUNTER → 2021-01-23 08:03 | Outpatient (REF) | payer OTHER, SELFPAY ==
--- NOTE | ~2021-01-23 | NM_ITS ---
Myocardial perfusion study Indication: Paroxysmal atrial fibrillation to evaluate for myocardial ischemia Technique: The patient was brought in for a Lexiscan perfusion study on 01/23/2021. Patient performed low-level exercise and was injected 0.4 mg of Lexiscan intravenously. Within a minute of injection, 25 mCi of sestamibi was given intravenously. Images were obtained using the SPECT gamma camera interlaced with the gating device. Images were obtained in supine position. Resting perfusion study was performed on 01/24/2021. Patient was administered 25 mCi of sestamibi intravenously at rest. Images were then obtained in supine position. Images obtained with and without CT attenuation. Total DLP 82 mGy-cm. Images were processed with the software and compared side to side in short axis, horizontal long axis and vertical long axis views. Findings: The stress perfusion study showed nonattenuated images show normal uptake of radiotracer in all segments of LV myocardium. Attenuation corrected images show mildly reduced uptake in the apex of the LV myocardium. The gated study shows normal LV systolic function with visually estimated LVEF of greater than 55%. LV cavity is normal in size. The gated study shows normal systolic wall thickening and contraction of segments. Resting study shows nonattenuated images show mildly reduced uptake in the basal inferior wall of the LV myocardium. Attenuation corrected images show moderately reduced uptake in the apex and mildly reduced uptake in the distal anterior distal wall of the LV myocardium.. Gating at rest reveals normal systolic wall motion with ejection fraction at 58%. The findings are consistent with normal myocardial perfusion. NM/NM cal perf SPECT rest & str Impression: 1. Myocardial perfusion imaging study shows normal myocardial perfusion 2. Gated LVEF is 58% 3. Transient ischemic dilatation not present EKG is nondiagnostic for ischemia
--- NOTE | 2021-01-23 08:09 | CA_ITS ---
Acquisition Time: 2021-01-23 08:30:29 Total Exercise Time: 00:02:00 Test Indications: Abnormal ECG Medications: COREG XARELTO CARVEDILOL ASA ATORVASTATIN FENOFIBRATE EZITIMIBE MECLIZINE TRAZADONE Protocol: LEXISCAN Max HR: 110 BPM 68% of Pred: 161 BPM Max BP: 144/080 mmHG Max Work Load: 1.6 METS Pharmacological stress test with Lexiscan injection, while walking on treadmill without anginal symptoms, without arrythmia, with normotensive response to injection, with nondiagnostic EKG for ischemia. Nuclear images pending. Test reviewed with Dr Wright. Referred By: Rocky Almanza Overread By: KAREL SERRA
--- NOTE | 2021-01-23 08:09 | CA_ITS ---
Transthoracic Echocardiogram Patient (Last, First, Middle): Oli Mccabe, Gender: Male Date of : 1960 Age: 61 Procedure Date: 01/23/2021 Procedure Type: Transthoracic Echocardiogram Location: OP Height: 167.64 cm Weight: 67.13 kg BSA: 1.76 m2 Heart Rate: bpm BP: 122 / 60 mmHg Fabric Pattern Grader: Referring MD: Rocky Almanza MD Computer Mechanic: Rocky Almanza MD Symptoms: I48.0 - Paroxysmal atrial fibrillation Study Quality: Fair ECG Rhythm: Sinus Conclusions: - 1. Normal LV systolic function with LVEF of 55-60% with impaired relaxation filling pattern 2. Trivial aortic regurgitation 3. Normal RV systolic pressure 4. No pericardial effusion Findings Left Ventricle Normal left ventricular size, thickness, and systolic function. The visually estimated ejection fraction is between 55-60%. Spectral Doppler is indicative of an impaired relaxation filling pattern. E/E prime ratio is between 8 and 15 consistent with indeterminate filling pressures. Right Ventricle Normal right ventricular cavity size and systolic function. Atria The left atrium is normal in size. There is no evidence of interatrial shunt. The right atrium is normal in size. Aortic Valve There is mild calcification of the aortic valve. There is mild thickening of the aortic valve. There is no aortic valve stenosis. There is trace (trivial) aortic valve regurgitation. Mitral Valve There is mild posterior mitral leaflet thickening. There is trace mitral valve regurgitation. There is no mitral valve stenosis. Pulmonic Valve The pulmonic valve was not well visualized. Tricuspid Valve The right ventricular systolic pressure is normal. The right ventricular systolic pressure is 21 mmHg. There is no evidence of pulmonary hypertension. Great Vessels All visible segments of the aorta are normal in size. The pulmonary artery was not well visualized. Venous The inferior vena cava is normal in size and collapses greater than 50% with inspiration. Pericardium/Pleural There is no evidence of pericardial effusion. Prior Study Comparison No significant change compared to prior study dated: 06/03/2017. Measurements 2D Linear Measurements IVSd: 1.09 0.6-0.9/0.6-1.0 cm LVIDd: 4.31 3.9-5.3/4.2-5.9 cm LVIDd Index: 2.45 2.4-3.2/2.2-3.1 cm/m2 LVIDs: 2.52 2.0-3.6 cm LVPWd: 1.15 0.7-1.1 cm Ao Root: 3.30 2.1-3.5 cm LA Diam: 3.50 2.7-3.8/3.0-4.0 cm LAIDs Index: 1.99 1.5-2.3 cm/m2 LV Mass: 208.99 67-162/88-224 g LV Mass Index: 118.74 43-95/49-115 g/m2 LVOT Diam: 2.10 3.0+(-)1.3 cm 2D Systolic Function EF 4C: 53.50 >55% EF 2C: 61.10 >55% EF BiP: 57.20 >55% Mitral Valve MV Pk E: 0.69 MV PK A: 0.75 MV Decel Time: 260.00 E/A: 0.90 E'Lateral: 7.83 E'Medial: 5.44 E/E' Med: 12.80 E/E' Lat: 8.90 PHT: 76.00 MVA PHT: 2.89 Decel [place]: 2.67 Aortic Valve AoV Pk Suman: 1.39 AoV Mn Suman: 0.92 AoV VTI: 0.29 AoV Pk Grad: 8.00 Aov Mn Grad: 4.00 ISHMAEL Cont.VTI: 1.97 LVOT LVOT Pk Suman: 0.80 LVOT Mn Suman: 0.46 LVOT VTI: 0.17 LVOT Pk Grad: 3.00 LVOT Mn Grad: 1.00 LVOT Diam: 2.10 LVOT Area: 3.46 Diastolic Function MV Pk E: 0.69 MV Pk A: 0.75 E/A: 0.90 E'Medial: 5.44 E/E' Med: 12.80 E' Laterial: 7.83 E/E' Lat: 8.90 Tricuspid Valve TR Pk Smuan: 2.11 TR Pk Grad: 18.00 RA Press: 3.00 RVSP: 21.00 Great Vessels Aorta Ao Root-2D: 3.30 2.0-3.7 cm Ao Asc: 3.60 2.1-3.4 cm Pulmonary Valve PV Pk Suman: 1.28 Peak PV Grad: 7.00 Updated in Other Vendor System with Status of Final Rocky Almanza MD electronically signed on 01/23/2021 12:44:02 PM with status of Final
== END ==
LOC: HO.CARD 08:03
PROVIDERS: Visit Provider Internal Medicine Cardiovascular Disease
DX: I48.0 Paroxysmal atrial fibrillation (principal); R07.2 Precordial pain; Z86.73 Personal history of transient ischemic attack (TIA), and cerebral infarction without residual deficits
CPT/HCPCS: 78452; 93017; 93306; A9500; J0280; J2785

== ENCOUNTER 2021-01-28 12:55 | Outpatient (REF) | payer OTHER, SELFPAY | END 2021-01-28 12:56 | disposition home or self-care (01) | LOC: HO.HAP 12:55 | PROVIDERS: Visit Provider Internal Medicine | DX: Z46.1 Encounter for fitting and adjustment of hearing aid (principal); H90.6 Mixed conductive and sensorineural hearing loss, bilateral | CPT/HCPCS: V5266 ==

== ENCOUNTER → 2021-02-06 10:44 | Outpatient (BNVA) | payer OTHER, SELFPAY | PROVIDERS: Visit Provider Internal Medicine Cardiovascular Disease | DX: I48.0 Paroxysmal atrial fibrillation (principal); I10 Essential (primary) hypertension; R00.2 Palpitations; E11.9 Type 2 diabetes mellitus without complications; E78.2 Mixed hyperlipidemia; Z86.73 Personal history of transient ischemic attack (TIA), and cerebral infarction without residual deficits; Z82.49 Family history of ischemic heart disease and other diseases of the circulatory system; Z79.82 Long term (current) use of aspirin; Z79.01 Long term (current) use of anticoagulants; Z79.84 Long term (current) use of oral hypoglycemic drugs; Z79.899 Other long term (current) drug therapy | CPT/HCPCS: 99212 ==

== ENCOUNTER 2021-03-14 10:42 | Outpatient (REF) | payer OTHER, SELFPAY | END 2021-03-14 10:43 | disposition home or self-care (01) | LOC: HO.HAP 10:42 | DX: Z46.1 Encounter for fitting and adjustment of hearing aid (principal); H90.6 Mixed conductive and sensorineural hearing loss, bilateral | CPT/HCPCS: V5266 ==

== ENCOUNTER 2021-04-26 12:45 | Outpatient (REF) | payer OTHER, SELFPAY | END 2021-04-26 12:46 | disposition home or self-care (01) | LOC: HO.HAP 12:45 | PROVIDERS: Visit Provider Internal Medicine | DX: Z46.1 Encounter for fitting and adjustment of hearing aid (principal); H90.6 Mixed conductive and sensorineural hearing loss, bilateral | CPT/HCPCS: V5266 ==

== ENCOUNTER 2021-05-27 14:00 | Outpatient (REF) | payer OTHER, SELFPAY | END 2021-05-27 14:01 | disposition home or self-care (01) | LOC: HO.HAP 14:00 | PROVIDERS: Visit Provider Internal Medicine | DX: Z46.1 Encounter for fitting and adjustment of hearing aid (principal); H90.6 Mixed conductive and sensorineural hearing loss, bilateral | CPT/HCPCS: V5266 ==

== ENCOUNTER 2021-06-19 11:19 | Outpatient (REF) | payer OTHER, SELFPAY ==
[2021-06-19 11:47] LABS: MANUAL DIFF FLAG NO
[2021-06-19 12:02] LABS: Basophils Percent Auto 0.3 % (0-2); Eosinophils Absolute Auto 0.2 X10*3/uL (0.0-0.4); Eosinophils Percent Auto 3.2 % (0-4); Hematocrit 40.9 % (42.0-52.0); Imm Gran Abs Auto 0.02 X10*3/uL (0.00-0.03); Imm Gran Pct Auto 0.3 % (0.0-0.4); Lymphocytes Absolute Auto 2.9 X10*3/uL (1.2-4.9); Lymphocytes Percent Auto 49.2 % (20-40); Mean Corpuscular HGB Conc 31.8 g/dl (31.0-36.0); Mean Corpuscular Hemoglobin 28.7 pg (27.0-33.0); Mean Corpuscular Volume 90.3 fL (80.0-98.0); Monocytes Absolute Auto 0.4 X10*3/uL (0.1-1.2); Monocytes Percent Auto 6.3 % (2-11); Neutrophils Absolute Auto 2.4 x10*3/uL (2.0-8.3); Neutrophils Percent Auto 40.7 % (45-73); Platelet Count 234 X10*3/uL (160-400); Red Blood Count 4.53 X10*6/uL (4.60-5.80); Red Cell Distribution Width 12.7 % (11.0-16.0); White Blood Count 5.9 X10*3/uL (4.8-10.8)
[2021-06-19 12:44] LABS: Alanine Aminotransferase 26 U/L (0-40); Albumin Level 4.2 g/dL (3.5-5.0); Alkaline Phosphatase 43 U/L (39-117); Anion Gap 11 (12-20); Aspartate Amino Transferase 17 U/L (5-37); Bilirubin Total 0.6 mg/dL (0.0-1.0); Blood Urea Nitrogen 15 mg/dL (9-16); Calcium 9.7 mg/dL (8.4-10.2); Carbon Dioxide 26 mmol/L (22-29); Chloride 105 mmol/L (96-108); Cholesterol 196 mg/dL; Estimated Glomerular Filt Rate > 60; Glucose Fasting 107 mg/dL (60-99); HDL Cholesterol 33 mg/dL; LDL Cholesterol Calculated 116 mg/dl; Sodium 137 mmol/L (135-145); Total Protein 7.7 g/dL (6.5-8.0); Triglycerides 237 mg/dL
[2021-06-19 13:36] LABS: Creatinine Urine 205.51 mg/dL; Microalbum/Creatinine Ratio Ur 3.8 ug/mg cr
== END 2021-06-19 11:20 | disposition home or self-care (01) ==
LOC: HO.LAB 11:19
PROVIDERS: PCP Internal Medicine; Visit Provider Internal Medicine
DX: E78.5 Hyperlipidemia, unspecified (principal); E11.9 Type 2 diabetes mellitus without complications; I48.0 Paroxysmal atrial fibrillation
CPT/HCPCS: 36415; 80053; 80061; 82043; 85025

== ENCOUNTER 2021-08-23 13:17 | Outpatient (REF) | payer OTHER, SELFPAY | END 2021-08-23 13:18 | disposition home or self-care (01) | LOC: HO.HAP 13:17 | PROVIDERS: Visit Provider Internal Medicine | DX: Z46.1 Encounter for fitting and adjustment of hearing aid (principal); H90.6 Mixed conductive and sensorineural hearing loss, bilateral | CPT/HCPCS: V5266 ==

== ENCOUNTER 2021-09-24 13:33 | Outpatient (REF) | payer OTHER, SELFPAY | END 2021-09-24 13:34 | disposition home or self-care (01) | LOC: HO.HAP 13:33 | PROVIDERS: Visit Provider Internal Medicine | DX: Z46.1 Encounter for fitting and adjustment of hearing aid (principal); H90.6 Mixed conductive and sensorineural hearing loss, bilateral | CPT/HCPCS: V5266 ==

== ENCOUNTER 2021-10-25 11:54 | Outpatient (REF) | payer OTHER, SELFPAY | END 2021-10-25 11:55 | disposition home or self-care (01) | LOC: HO.HAP 11:54 | PROVIDERS: Visit Provider Internal Medicine | DX: Z46.1 Encounter for fitting and adjustment of hearing aid (principal); H90.6 Mixed conductive and sensorineural hearing loss, bilateral | CPT/HCPCS: V5266 ==

== ENCOUNTER 2021-11-12 13:47 | Outpatient (REF) | payer OTHER, SELFPAY | END 2021-11-12 13:48 | disposition home or self-care (01) | LOC: HO.HAP 13:47 | PROVIDERS: Visit Provider Internal Medicine | DX: Z46.1 Encounter for fitting and adjustment of hearing aid (principal); H90.6 Mixed conductive and sensorineural hearing loss, bilateral | CPT/HCPCS: V5266 ==

== ENCOUNTER 2021-12-23 14:44 | Outpatient (REF) | payer OTHER, SELFPAY | END 2021-12-23 14:45 | disposition home or self-care (01) | LOC: HO.HAP 14:44 | PROVIDERS: Visit Provider Internal Medicine | DX: Z46.1 Encounter for fitting and adjustment of hearing aid (principal); H90.6 Mixed conductive and sensorineural hearing loss, bilateral | CPT/HCPCS: V5266 ==

== ENCOUNTER 2022-01-23 11:00 | Outpatient (REF) | payer OTHER, SELFPAY | END 2022-01-23 11:01 | disposition home or self-care (01) | LOC: HO.HAP 11:00 | PROVIDERS: Visit Provider Internal Medicine | DX: Z46.1 Encounter for fitting and adjustment of hearing aid (principal); H90.6 Mixed conductive and sensorineural hearing loss, bilateral | CPT/HCPCS: V5266 ==

== ENCOUNTER 2022-03-07 08:02 | Outpatient (REF) | payer OTHER, SELFPAY ==
[2022-03-07 08:18] LABS: MANUAL DIFF FLAG NO
[2022-03-07 08:40] LABS: Basophils Percent Auto 0.5 % (0-2); Eosinophils Absolute Auto 0.1 X10*3/uL (0.0-0.4); Eosinophils Percent Auto 1.6 % (0-4); Hemoglobin 12.7 g/dl (14.0-18.0); Imm Gran Abs Auto 0.02 X10*3/uL (0.00-0.03); Imm Gran Pct Auto 0.4 % (0.0-0.4); Lymphocytes Absolute Auto 2.2 X10*3/uL (1.2-4.9); Mean Corpuscular HGB Conc 32.6 g/dl (31.0-36.0); Mean Corpuscular Hemoglobin 28.8 pg (27.0-33.0); Mean Corpuscular Volume 88.4 fL (80.0-98.0); Mean Platelet Volume 11.7 fL (9.4-12.4); Monocytes Absolute Auto 0.4 X10*3/uL (0.1-1.2); Monocytes Percent Auto 7.7 % (2-11); Neutrophils Absolute Auto 2.7 x10*3/uL (2.0-8.3); Neutrophils Percent Auto 49.8 % (45-73); Platelet Count 198 X10*3/uL (160-400); Red Blood Count 4.41 X10*6/uL (4.60-5.80); Red Cell Distribution Width 12.7 % (11.0-16.0); White Blood Count 5.5 X10*3/uL (4.8-10.8)
[2022-03-07 09:34] LABS: Creatinine Urine 103.01 mg/dL; Microalbum/Creatinine Ratio Ur 11.6 ug/mg cr
[2022-03-07 09:41] LABS: Alanine Aminotransferase 26 U/L (0-40); Alkaline Phosphatase 48 U/L (39-117); Anion Gap 13 (12-20); Aspartate Amino Transferase 20 U/L (5-37); Bilirubin Total 0.6 mg/dL (0.0-1.0); Blood Urea Nitrogen 14 mg/dL (9-16); Calcium 8.9 mg/dL (8.4-10.2); Carbon Dioxide 24 mmol/L (22-29); Chloride 105 mmol/L (96-108); Cholesterol 226 mg/dL; Estimated Glomerular Filt Rate > 60; Glucose Fasting 172 mg/dL (60-99); HDL Cholesterol 40 mg/dL; Iron 60 mcg/dL (45-160); LDL Cholesterol Calculated 160 mg/dl; Percent Iron Saturation 22 % (15-50); Potassium 4.4 mmol/L (3.3-5.1); Sodium 138 mmol/L (135-145); Total Iron Binding Capacity 277 mcg/dL (228-428); Total Protein 7.3 g/dL (6.5-8.0); Triglycerides 132 mg/dL; Unsaturated Iron Binding 217 ug/dL; Vitamin D 25-OH Total 25.3 ng/mL (>30)
== END 2022-03-07 08:03 | disposition home or self-care (01) ==
LOC: HO.LAB 08:02
PROVIDERS: PCP Internal Medicine; Visit Provider Internal Medicine
DX: E11.9 Type 2 diabetes mellitus without complications (principal); D64.9 Anemia, unspecified; E55.9 Vitamin D deficiency, unspecified; E78.5 Hyperlipidemia, unspecified
CPT/HCPCS: 36415; 80053; 80061; 82043; 82306; 83540; 85025

== ENCOUNTER 2022-04-29 13:20 | Outpatient (REF) | payer OTHER, SELFPAY | END 2022-04-29 13:21 | disposition home or self-care (01) | LOC: HO.HAP 13:20 | PROVIDERS: Visit Provider Internal Medicine | DX: Z46.1 Encounter for fitting and adjustment of hearing aid (principal); H90.6 Mixed conductive and sensorineural hearing loss, bilateral | CPT/HCPCS: V5266 ==

== ENCOUNTER 2022-06-20 12:24 | Outpatient (REF) | payer OTHER, SELFPAY | END 2022-06-20 12:25 | disposition home or self-care (01) | LOC: HO.HAP 12:24 | PROVIDERS: Visit Provider Internal Medicine | DX: Z46.1 Encounter for fitting and adjustment of hearing aid (principal); H90.6 Mixed conductive and sensorineural hearing loss, bilateral | CPT/HCPCS: V5266 ==

== ENCOUNTER 2022-07-28 08:30 | Emergency (ER) | payer OTHER, SELFPAY ==
--- NOTE | ~2022-07-28 | CT_ITS ---
EXAMINATION: CT SOFT TISSUE NECK WITH CONTRAST CLINICAL INFORMATION: Rule out peritonsillar abscess COMPARISON: Previous CTA of the neck from 2018 TECHNIQUE: Following the intravenous administration of 60 mL of Omnipaque 350 intravenous contrast, helical imaging was performed in the axial plane with generation of coronal and sagittal reformatted images. This CT examination was performed using dose optimization techniques as appropriate, variously including the following: *Automated exposure control *Adjustment of mA and/or kV according to patient size (this includes techniques or standardized protocols for targeted exams where dose is matched to indication/reason for exam; i.e. extremities or head) *Use of iterative reconstruction technique DLP: 739 mGy-cm FINDINGS: There is asymmetric low attenuation in the right pharyngo mucosal space suggestive of a large right peritonsillar abscess. This measures 2 x 4.5 x 6 cm in transverse AP and longitudinal dimension. This extends to the aryepiglottic fold and effaces the right piriform sinus. This extends to the prevertebral soft tissues on the right from C2 to C4. There is diffuse soft tissue thickening of the oropharynx that is slightly high in attenuation or enhancing probably representing enlarged lymphoid tissue. There are enlarged cervical lymph nodes, largest a right submandibular lymph node measuring 1.3 x 2 x 3.6 cm in AP, transverse and longitudinal dimension. The larynx is normal. The epiglottis is normal. There is a soft tissue swelling and small amount of fluid in the right side of the face surrounding the right submandibular gland and right masseter muscle. Visualized intracranial structures are normal. The visualized orbits are normal. There is mild membranous soft tissue thickening in the left maxillary sinus. The salivary glands are otherwise normal. The thyroid gland is normal. . Superior mediastinum is normal. Lung apices are clear. Vascular structures are normal. There are degenerative changes of the cervical spine. No dental abscess. CT/CT soft tissue neck w IV con IMPRESSION: Large right peritonsillar abscess measuring 2 x 4.5 x 6 cm. This extends to the level of the right aryepiglottic fold and effaces the right piriformis sinus. This extends to the prevertebral soft tissues on the right from C2 to C4. There is prominent tissue seen in the oropharynx probably representing lymphoid tissue. There is extensive cervical lymphadenopathy. Findings were communicated to Rahel Monaco by telephone on 07/28/2022 at 12:28 PM.
[2022-07-28 09:00] VITALS: BP 184/110; PULSE 97; RESP 20; TEMP 36.8; O2SAT 98; BMI 24.4
--- NOTE | 2022-07-28 09:16 | ED.GENADULT ---
HPI - General Adult General Chief complaint: General Medical <ANUPAM Carney Last Filed: 07/28/22 12:53> Stated complaint: Sore throat/swelling? 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 Patient states that over the last 2 days his throat has been very sore and he has been unable to eat or drink. Patient denies any dizziness, lightheadedness, abdominal pain, nausea, vomiting, fever, chills, blurry vision, double vision, loss of vision, chest pain, difficulty breathing, shortness of breath, back pain, night sweats, pain with urination, increased urinary frequency, increased urinary urgency, blood in his urine or stool, syncope or a near syncopal episode, recent trauma or falls, bowel incontinence, bladder incontinence, bowel retention, bladder retention, or any other complaints at this time. <ANUPAM Carney Last Filed: 07/28/22 12:53> Onset (ago): day(s) (2) <ANUPAM Carney - Last Filed: 07/28/22 12:53> Severity: moderate <ANUPAM Carney Last Filed: 07/28/22 12:53> Severity scale (1-10): 5 <ANUPAM Carney Last Filed: 07/28/22 12:53> Pain Consistency: constant <ANUPAM Carney Last Filed: 07/28/22 12:53> Relieving factors: none <ANUPAM Carney Last Filed: 07/28/22 12:53> Exacerbating factors: none <ANUPAM Carney - Last Filed: 07/28/22 12:53> Associated symptoms: denies other symptoms <ANUPAM Carney - Last Filed: 07/28/22 12:53> Treatments prior to arrival: none <ANUPAM Carney - Last Filed: 07/28/22 12:53> Related Data Home medications: Previous Rx's Medication Instructions Recorded atorvastatin 80 mg tablet 80 mg PO BEDTIME 90 days #90 tabs 04/05/20 meclizine 25 mg tablet 25 mg PO TID PRN dizziness 30 days 04/05/20 #90 tabs metformin 500 mg tablet 500 mg PO BID 90 days #180 tabs 04/05/20 rivaroxaban 20 mg tablet (Xarelto) 20 mg PO QPM #30 tabs 01/08/21 fenofibrate 54 mg tablet 54 mg PO DAILY 90 days #90 tabs 03/05/21 ezetimibe 10 mg tablet 10 mg PO DAILY 90 days #90 tabs 06/08/21 carvedilol 12.5 mg tablet 12.5 mg PO BID 90 days #180 tabs 06/09/21 lisinopril 20 mg tablet 20 mg PO DAILY 90 days #90 tabs 06/09/21 trazodone 50 mg tablet 50 mg PO BEDTIME PRN sleep 90 days 06/20/21 #90 tabs fluticasone propionate 50 1 spray intranasal DAILY 30 days 02/21/22 mcg/actuation nasal #16 grams spray,suspension (Flonase Allergy Relief) cholecalciferol (vitamin D3) 25 25 mcg PO DAILY 90 days #90 caps 03/08/22 mcg (1,000 unit) capsule aspirin 81 mg tablet,delayed 81 mg PO DAILY 90 days #90 tabs 07/23/22 release (Adult Low Dose Aspirin) ropinirole 0.5 mg tablet 0.5 mg PO BEDTIME 90 days #90 tabs 07/23/22 <ANUPAM Carney - Last Filed: 07/28/22 12:53> Allergies/adverse reactions: Allergies Allergy/AdvReac Type Severity Reaction Status Date / Time No Known Allergies Allergy Verified 07/28/22 09:00 [No Known Allergies*] <ANUPAM Carney - Last Filed: 07/28/22 12:53> Review of Systems Constitutional: Constitutional: Reports no additional constitutional complaints, Denies chills, Denies fever(s) and Denies night sweats <ANUPAM Carney Last Filed: 07/28/22 12:53> Eyes: Eyes: Reports no additional eye complaints, Denies blurry vision, Denies change in vision, Denies diplopia, Denies eye discharge, Denies loss of vision and Denies eye pain <ANUPAM Carney - Last Filed: 07/28/22 12:53> ENT: Reports change in voice, Denies dizziness and Reports sore throat <ANUPAM Carney Last Filed: 07/28/22 12:53> Cardiovascular: Cardiovascular: Reports no additional cardiovascular complaints, Denies chest pain, Denies lightheadedness, Denies Loss of Consciousness and Denies dyspnea <ANUPAM Carney Last Filed: 07/28/22 12:53> Respiratory: Respiratory: Reports no additional respiratory complaints and Denies dyspnea <ANUPAM Carney - Last Filed: 07/28/22 12:53> Gastrointestinal: Gastrointestinal: Reports no additional gastrointestinal complaints, Denies abdominal pain, Denies melena, Denies hematochezia, Denies change in bowel habits and Denies change in stool character <ANUPAM Carney - Last Filed: 07/28/22 12:53> Genitourinary: Genitourinary: Reports no additional male genitourinary complaints, Denies hematuria, Denies oliguria, Denies difficulty urinating, Denies dysuria, Denies urinary frequency, Denies urinary hesitancy, Denies urinary incontinence and Denies urinary urgency <ANUPAM Carney - Last Filed: 07/28/22 12:53> Musculoskeletal: Musculoskeletal: Reports no additional musculoskeletal complaints, Denies numbness and Denies tingling <ANUPAM Carney - Last Filed: 07/28/22 12:53> Neurologic: Denies dizziness, Denies loss of vision, Denies numbness and Denies tingling <ANUPAM Carney Last Filed: 07/28/22 12:53> Psychiatric: Psychiatric: Reports no additional psychiatric complaints <ANUPAM Carney Last Filed: 07/28/22 12:53> Endocrine: Endocrine: Reports no additional endocrine complaints <ANUPAM Carney - Last Filed: 07/28/22 12:53> Hematologic/Lymphatic: Hematologic/Lymphatic: Reports no additional hematologic/lymphatic complaints <ANPUAM Carney - Last Filed: 07/28/22 12:53> Allergic/Immunologic: Allergic/Immunologic: Reports no additional allergic/immunologic complaints <ANUPAM Carney - Last Filed: 07/28/22 12:53> PMFSH Past Medical History Attestation statement: The following information was validated with the patient. <ANUPAM Carney - Last Filed: 07/28/22 12:53> Source: old records reviewed and nursing notes reviewed <ANUPAM Carney - Last Filed: 07/28/22 12:53> Medical History: Medical History CVA (cerebral vascular accident) Diabetes mellitus Essential hypertension Mixed hyperlipidemia Paroxysmal atrial fibrillation Restless leg syndrome Vertigo <ANUPAM Carney - Last Filed: 07/28/22 12:53> Surgical History: Surgical History No pertinent past surgical history <ANUPAM Carney - Last Filed: 07/28/22 12:53> Family History Family History: Family History Father CVD (cardiovascular disease) Hypertension Mother Hypertension Stroke Sister CVD (cardiovascular disease) Hypertension Son No problems noted. Daughter No problems noted. <ANUPAM Carney - Last Filed: 07/28/22 12:53> Social History Social History: Social History Housing: Apartment Alcohol intake: current Alcohol intake frequency: holidays/special occasions only Alcohol type: beer Patient Tobacco Use Status: Never used Tobacco Smoked in Last 30 Days: No e-Cigarette/Vaping Use: Never Used Second Hand Smoke Exposure: No Use of substances other than those prescribed or required for medical reasons: No Advance Directives: No Advance Directives Information Provided: Yes service: No Current occupational status: disabled Cognitive needs: No Hearing needs: No Vision needs: No <ANUPAM Carney - Last Filed: 07/28/22 12:53> Physical Exam ED Vital Signs: Vital Signs - 24 hr 07/28/22 09:00 07/28/22 11:36 07/28/22 13:04 Temperature 98.2 F Pulse Rate 97 102 H 73 Respiratory Rate 20 18 18 Blood Pressure 184/110 H 197/90 H 146/97 H Pulse Oximetry 98 97 96 Oxygen Delivery Method Room Air Room Air Room Air 07/28/22 13:33 Temperature Pulse Rate 79 Respiratory Rate Blood Pressure Pulse Oximetry 98 Oxygen Delivery Method BMI result Body Mass Index 24.4 <ANUPAM Carney - Last Filed: 07/28/22 12:53> Vital Signs - 24 hr 07/28/22 09:00 07/28/22 11:36 07/28/22 13:04 Temperature 98.2 F Pulse Rate 97 102 H 73 Respiratory Rate 20 18 18 Blood Pressure 184/110 H 197/90 H 146/97 H Pulse Oximetry 98 97 96 Oxygen Delivery Method Room Air Room Air Room Air 07/28/22 13:33 Temperature Pulse Rate 79 Respiratory Rate Blood Pressure Pulse Oximetry 98 Oxygen Delivery Method BMI result Body Mass Index 24.4 <Ace Albright MD - Last Filed: 07/28/22 15:55> Const General: cooperative, no acute distress, alert and awake <ANUPAM Carney - Last Filed: 07/28/22 12:53> Nutritional Appearance: well nourished <ANUPAM Carney Last Filed: 07/28/22 12:53> Orientation/consciousness: patient oriented x3 <ANUPAM Carney Last Filed: 07/28/22 12:53> Limitations: no limitations <ANUPAM Carney Last Filed: 07/28/22 12:53> HENMT Head: Yes normal to inspection and Yes atraumatic <ANUPAM Carney Last Filed: 07/28/22 12:53> Ears: hearing grossly normal bilaterally and external ears normal <ANUPAM Carney Last Filed: 07/28/22 12:53> General nose exam: Normal external nose present, no nasal discharge noted and no epistaxis <ANUPAM Carney Last Filed: 07/28/22 12:53> Face and sinus: Yes normal facial exam, No abrasion and No laceration <Rahel Monaco PA - Last Filed: 07/28/22 12:53> Mouth: Normal oral and palatal mucosa present, no drooling, muffled voice and other (significant bilateral tonsilar swelling) <Rahel QuinnANUPAM verma - Last Filed: 07/28/22 12:53> Eyes General: appearance normal, both eyes and all related structures <Rahelmichael QuinnANUPAM verma - Last Filed: 07/28/22 12:53> Periorbital: periorbital findings normal <Rahelmichael QuinnANUPAM verma - Last Filed: 07/28/22 12:53> Eyelids: Yes eyelids normal <Rahelmichael QuinnANUPAM verma - Last Filed: 07/28/22 12:53> Conjunctivae: conjunctivae normal <Rahelmichael QuinnANUPAM verma - Last Filed: 07/28/22 12:53> Pupils: Equal, round and reactive pupils present <Rahelmichael QuinnANUPAM verma - Last Filed: 07/28/22 12:53> EOM: EOMs intact bilaterally <ANUPAM Carney - Last Filed: 07/28/22 12:53> Neck Neck: Yes normal visual inspection, Yes full ROM and Yes no lymphadenopathy <Rahelmichael QuinnANUPAM verma - Last Filed: 07/28/22 12:53> Chest Chest palpation & inspection: normal inspection of the chest <ANUPAM Carney - Last Filed: 07/28/22 12:53> Resp Effort & Inspection: normal respiratory effort and able to speak in complete sentences <ANUPAM Carney - Last Filed: 07/28/22 12:53> Auscultation: clear to auscultation bilaterally <ANUPAM Carney - Last Filed: 07/28/22 12:53> Cardio Rate: regular rate <ANUPAM Carney - Last Filed: 07/28/22 12:53> Rhythm: regular rhythm <ANUPAM Carney - Last Filed: 07/28/22 12:53> GI Inspection: Yes normal to inspection <ANUPAM Carney - Last Filed: 07/28/22 12:53> Palpation (GI): Soft to palpation, not firm, nontender and no guarding <ANUPAM Carney - Last Filed: 07/28/22 12:53> Neuro General: patient oriented x3 and moves all extremities <Rahelmichael QuinnANUPAM verma - Last Filed: 07/28/22 12:53> Cranial nerves: Yes Equal, round and reactive pupils present <Rahelmichael QuinnANUPAM verma - Last Filed: 07/28/22 12:53> Cognition (Neuro): normal cognition <Rahelmichael QuinnANUPAM verma - Last Filed: 07/28/22 12:53> Motor exam (neuro): 5/5 motor strength present throughout <Rahel ANUPAM Monaco - Last Filed: 07/28/22 12:53> Sensory Exam: Normal double simultaneous stimulation for sensation <Rahelmichael QuinnANUPAM verma - Last Filed: 07/28/22 12:53> Coordination: [id number] test normal <ANUPAM Carney - Last Filed: 07/28/22 12:53> Extrem General: Yes normal to inspection, Yes full ROM and Yes capillary refill normal <Arhel MonacoANUPAM verma - Last Filed: 07/28/22 12:53> Psych Appearance: grossly normal <ANUPAM Carney - Last Filed: 07/28/22 12:53> Mental Status: mental status grossly normal <ANUPAM Carney - Last Filed: 07/28/22 12:53> Affect: normal affect <ANUPAM Carney - Last Filed: 07/28/22 12:53> Attitude: cooperative <ANUPAM Carney - Last Filed: 07/28/22 12:53> Thought process: Normal thought process present <ANUPAM Carney - Last Filed: 07/28/22 12:53> Thought content: Normal thought content present <ANUPAM Carney - Last Filed: 07/28/22 12:53> Insight: Good insight present (Psych) <ANUPAM Carney - Last Filed: 07/28/22 12:53> Medications Administered Discontinued Medications Generic Name Dose Route Start Last Admin Trade Name Veronika PRN Reason Stop Dose Admin Dexamethasone Sodium Phosphate 10 mg 07/28/22 09:37 07/28/22 09:46 Dexamethasone Sod Phosphate 10 Mg/Ml Vial PO 07/28/22 09:38 10 mg ONCE ONE Administration Sodium Chloride 1,000 mls @ 999 mls/hr 07/28/22 09:30 07/28/22 12:39 Ns IV 07/28/22 10:30 Infused .Q1H1M CAROLINE Infusion Ceftriaxone Sodium 2 gm/ 50 mls @ 100 mls/hr 07/28/22 09:23 07/28/22 11:02 Sodium Chloride IV 07/28/22 09:52 Infused ONCE ONE Infusion Iohexol 60 ml 07/28/22 11:59 07/28/22 12:00 Iohexol 350 Mg/Ml 100 Ml Infus..Btl IV 07/28/22 12:00 60 ml ONCE ONE Administration Ketorolac Tromethamine 15 mg 07/28/22 10:51 07/28/22 11:02 Ketorolac Tromethamine 15 Mg/Ml Vial IVPUSH 07/28/22 10:52 15 mg ONCE ONE Administration <ANUPAM Carney - Last Filed: 07/28/22 12:53> Medications Administered Discontinued Medications Generic Name Dose Route Start Last Admin Trade Name Freq PRN Reason Stop Dose Admin Dexamethasone Sodium Phosphate 10 mg 07/28/22 09:37 07/28/22 09:46 Dexamethasone Sod Phosphate 10 Mg/Ml Vial PO 07/28/22 09:38 10 mg ONCE ONE Administration Sodium Chloride 1,000 mls @ 999 mls/hr 07/28/22 09:30 07/28/22 12:39 Ns IV 07/28/22 10:30 Infused .Q1H1M CAROLINE Infusion Ceftriaxone Sodium 2 gm/ 50 mls @ 100 mls/hr 07/28/22 09:23 07/28/22 11:02 Sodium Chloride IV 07/28/22 09:52 Infused ONCE ONE Infusion Iohexol 60 ml 07/28/22 11:59 07/28/22 12:00 Iohexol 350 Mg/Ml 100 Ml Infus..Btl IV 07/28/22 12:00 60 ml ONCE ONE Administration Ketorolac Tromethamine 15 mg 07/28/22 10:51 07/28/22 11:02 Ketorolac Tromethamine 15 Mg/Ml Vial IVPUSH 07/28/22 10:52 15 mg ONCE ONE Administration <Ace Albright MD - Last Filed: 07/28/22 15:55> Medical Decision Making Medical Decision Making MDM Narrative: Patient is a 62 year old assigned male at with a history of CVA, HTN, and DM presenting to the emergency department today with a sore throat and voice changes. Patient's physical exam showed significantly swollen tonsils with a muffled voice. Patient's blood work showed an elevated WBC count of 11.3, ESR of 72, and a CRP of 18.08. Patient's soft tissue neck CT showed a large right peritonsilar abscess encroaching the mediastinum. Patient's strep test was positive. I attempted to transfer the patient to [facility] however, they are closed to ENT transfer at this time. I spoke to [facility] who accepted the patient as an ED to ED transfer, Dr. Henderson accepting. Patient's clinical presentation is consistent with a peritonsilar abscess and strep pharyngitis however, the patient is not septic (@1250). I explained my physical exam findings as well as all test results to the patient. I answered all questions asked by the patient. Patient received IV Toradol, PO Decadron, IV Ceftriaxone, and IV fluids which he stated helped his symptoms significantly. Patient verbalized agreement and understanding with this treatment plan and transfer to [facility] ED. <ANUPAM Carney - Last Filed: 07/28/22 12:53> Differential Diagnosis Differential Diagnoses: The differential diagnosis associated with the presentation includes <ANUPAM Carney - Last Filed: 07/28/22 12:53> peritonsilar abscess, strep pharyngitis <ANUPAM Carney - Last Filed: 07/28/22 12:53> Consult Healthcare Provider Management of the patient was discussed with: [facility] [employer] (spoke to [facility] as noted in [facility] portion of this chart) <ANUPAM Carney - Last Filed: 07/28/22 12:53> Lab Data [facility] Lab Attestation statement: I reviewed the patient's lab results. <ANUPAM Carney Last Filed: 07/28/22 12:53> Result Diagrams: 07/28/22 09:34 07/28/22 09:33 <ANUPAM Carney - Last Filed: 07/28/22 12:53> Labs: Lab Results 07/28/22 07/28/22 07/28/22 Range/Units 09:22 09:22 09:22 WBC (4.8-10.8) X10*3/uL RBC (4.60-5.80) X10*6/uL Hgb (14.0-18.0) g/dl Hct (42.0-52.0) % MCV (80.0-98.0) fL MCH (27.0-33.0) pg MCHC (31.0-36.0) g/dl RDW (11.0-16.0) % Plt Count (160-400) X10*3/uL MPV (9.4-12.4) fL Immature Gran % (Auto) (0.0-0.4) % Neut % (Auto) (45-73) % Lymph % (Auto) (20-40) % [place] % (Auto) (2-11) % Eos % (Auto) (0-4) % Baso % (Auto) (0-2) % Lymph # (Auto) (1.2-4.9) X10*3/uL [place] # (Auto) (0.1-1.2) X10*3/uL Eos # (Auto) (0.0-0.4) X10*3/uL Baso # (Auto) (0.0-0.2) X10*3/uL Abs Immat Gran (auto) (0.00-0.03) X10*3/uL Absolute Neuts (auto) (2.0-8.3) x10*3/uL Absolute Nucleated RBC (0.0-0.012) X10*3/uL Nucleated RBC % (auto) (0.0-0.2) /100WBC ESR (0-15) MM/HR Sodium (135-145) mmol/L Potassium (3.3-5.1) mmol/L Chloride (96-108) mmol/L Carbon Dioxide (22-29) mmol/L Anion Gap (12-20) BUN (9-16) mg/dL Creatinine (0.5-1.4) mg/dL Estim Creat Clear Calc Estimated GFR Random Glucose (60-115) mg/dL Lactic Acid (0.5-2.0) mmol/L Calcium (8.4-10.2) mg/dL Total Bilirubin (0.0-1.0) mg/dL AST (5-37) U/L ALT (0-40) U/L Alkaline Phosphatase (39-117) U/L C-Reactive Protein (< or = 0.50) mg/dL Total Protein (6.5-8.0) g/dL Albumin (3.5-5.0) g/dL COVID-19 (DEYANIRA) Negative (Negative) COVID-19 Clin Com See Note Influenza Type A (YEHUDA) Negative (Negative) Influenza Type B (YEHUDA) Negative (Negative) Influenza A & B Note See Note S. pyogenes GrpA YEHUDA Positive A (Negative) 07/28/22 07/28/22 07/28/22 Range/Units 09:33 09:33 09:34 WBC 11.3 H (4.8-10.8) X10*3/uL RBC 4.71 (4.60-5.80) X10*6/uL Hgb 14.0 (14.0-18.0) g/dl Hct 42.1 (42.0-52.0) % MCV 89.4 (80.0-98.0) fL MCH 29.7 (27.0-33.0) pg MCHC 33.3 (31.0-36.0) g/dl RDW 12.9 (11.0-16.0) % Plt Count 259 D (160-400) X10*3/uL MPV 11.8 (9.4-12.4) fL Immature Gran % (Auto) 0.4 (0.0-0.4) % Neut % (Auto) 75.7 H (45-73) % Lymph % (Auto) 15.6 L (20-40) % [place] % (Auto) 7.7 (2-11) % Eos % (Auto) 0.2 (0-4) % Baso % (Auto) 0.4 (0-2) % Lymph # (Auto) 1.8 (1.2-4.9) X10*3/uL [place] # (Auto) 0.9 (0.1-1.2) X10*3/uL Eos # (Auto) 0.0 (0.0-0.4) X10*3/uL Baso # (Auto) 0.1 (0.0-0.2) X10*3/uL Abs Immat Gran (auto) 0.04 H (0.00-0.03) X10*3/uL Absolute Neuts (auto) 8.6 H (2.0-8.3) x10*3/uL Absolute Nucleated RBC 0.000 (0.0-0.012) X10*3/uL Nucleated RBC % (auto) 0.0 (0.0-0.2) /100WBC ESR 72 H (0-15) MM/HR Sodium 137 (135-145) mmol/L Potassium 4.2 (3.3-5.1) mmol/L Chloride 101 (96-108) mmol/L Carbon Dioxide 24 (22-29) mmol/L Anion Gap 16 (12-20) BUN 10 (9-16) mg/dL Creatinine 0.86 (0.5-1.4) mg/dL Estim Creat Clear Calc 85.4 Estimated GFR > 60 Random Glucose 129 H (60-115) mg/dL Lactic Acid (0.5-2.0) mmol/L Calcium 9.6 D (8.4-10.2) mg/dL Total Bilirubin 2.0 H (0.0-1.0) mg/dL AST 25 (5-37) U/L ALT 39 (0-40) U/L Alkaline Phosphatase 88 (39-117) U/L C-Reactive Protein 18.08 H (< or = 0.50) mg/dL Total Protein 8.8 H (6.5-8.0) g/dL Albumin 4.5 (3.5-5.0) g/dL COVID-19 (DEYANIRA) (Negative) COVID-19 Clin Com Influenza Type A (YEHUDA) (Negative) Influenza Type B (YEHUDA) (Negative) Influenza A & B Note S. pyogenes GrpA YEHUDA (Negative) 07/28/22 Range/Units 09:34 WBC (4.8-10.8) X10*3/uL RBC (4.60-5.80) X10*6/uL Hgb (14.0-18.0) g/dl Hct (42.0-52.0) % MCV (80.0-98.0) fL MCH (27.0-33.0) pg MCHC (31.0-36.0) g/dl RDW (11.0-16.0) % Plt Count (160-400) X10*3/uL MPV (9.4-12.4) fL Immature Gran % (Auto) (0.0-0.4) % Neut % (Auto) (45-73) % Lymph % (Auto) (20-40) % [place] % (Auto) (2-11) % Eos % (Auto) (0-4) % Baso % (Auto) (0-2) % Lymph # (Auto) (1.2-4.9) X10*3/uL [place] # (Auto) (0.1-1.2) X10*3/uL Eos # (Auto) (0.0-0.4) X10*3/uL Baso # (Auto) (0.0-0.2) X10*3/uL Abs Immat Gran (auto) (0.00-0.03) X10*3/uL Absolute Neuts (auto) (2.0-8.3) x10*3/uL Absolute Nucleated RBC (0.0-0.012) X10*3/uL Nucleated RBC % (auto) (0.0-0.2) /100WBC ESR (0-15) MM/HR Sodium (135-145) mmol/L Potassium (3.3-5.1) mmol/L Chloride (96-108) mmol/L Carbon Dioxide (22-29) mmol/L Anion Gap (12-20) BUN (9-16) mg/dL Creatinine (0.5-1.4) mg/dL Estim Creat Clear Calc Estimated GFR Random Glucose (60-115) mg/dL Lactic Acid 1.0 (0.5-2.0) mmol/L Calcium (8.4-10.2) mg/dL Total Bilirubin (0.0-1.0) mg/dL AST (5-37) U/L ALT (0-40) U/L Alkaline Phosphatase (39-117) U/L C-Reactive Protein (< or = 0.50) mg/dL Total Protein (6.5-8.0) g/dL Albumin (3.5-5.0) g/dL COVID-19 (DEYANIRA) (Negative) COVID-19 Clin Com Influenza Type A (YEHUDA) (Negative) Influenza Type B (YEHUDA) (Negative) Influenza A & B Note S. pyogenes GrpA YEHUDA (Negative) <ANUPAM Carney - Last Filed: 07/28/22 12:53> Lab Results 07/28/22 07/28/22 07/28/22 Range/Units 09:22 09:22 09:22 WBC (4.8-10.8) X10*3/uL RBC (4.60-5.80) X10*6/uL Hgb (14.0-18.0) g/dl Hct (42.0-52.0) % MCV (80.0-98.0) fL MCH (27.0-33.0) pg MCHC (31.0-36.0) g/dl RDW (11.0-16.0) % Plt Count (160-400) X10*3/uL MPV (9.4-12.4) fL Immature Gran % (Auto) (0.0-0.4) % Neut % (Auto) (45-73) % Lymph % (Auto) (20-40) % [place] % (Auto) (2-11) % Eos % (Auto) (0-4) % Baso % (Auto) (0-2) % Lymph # (Auto) (1.2-4.9) X10*3/uL [place] # (Auto) (0.1-1.2) X10*3/uL Eos # (Auto) (0.0-0.4) X10*3/uL Baso # (Auto) (0.0-0.2) X10*3/uL Abs Immat Gran (auto) (0.00-0.03) X10*3/uL Absolute Neuts (auto) (2.0-8.3) x10*3/uL Absolute Nucleated RBC (0.0-0.012) X10*3/uL Nucleated RBC % (auto) (0.0-0.2) /100WBC ESR (0-15) MM/HR Sodium (135-145) mmol/L Potassium (3.3-5.1) mmol/L Chloride (96-108) mmol/L Carbon Dioxide (22-29) mmol/L Anion Gap (12-20) BUN (9-16) mg/dL Creatinine (0.5-1.4) mg/dL Estim Creat Clear Calc Estimated GFR Random Glucose (60-115) mg/dL Lactic Acid (0.5-2.0) mmol/L Calcium (8.4-10.2) mg/dL Total Bilirubin (0.0-1.0) mg/dL AST (5-37) U/L ALT (0-40) U/L Alkaline Phosphatase (39-117) U/L C-Reactive Protein (< or = 0.50) mg/dL Total Protein (6.5-8.0) g/dL Albumin (3.5-5.0) g/dL COVID-19 (DEYANIRA) Negative (Negative) COVID-19 Clin Com See Note Influenza Type A (YEHUDA) Negative (Negative) Influenza Type B (YEHUDA) Negative (Negative) Influenza A & B Note See Note S. pyogenes GrpA YEHUDA Positive A (Negative) 07/28/22 07/28/22 07/28/22 Range/Units 09:33 09:33 09:34 WBC 11.3 H (4.8-10.8) X10*3/uL RBC 4.71 (4.60-5.80) X10*6/uL Hgb 14.0 (14.0-18.0) g/dl Hct 42.1 (42.0-52.0) % MCV 89.4 (80.0-98.0) fL MCH 29.7 (27.0-33.0) pg MCHC 33.3 (31.0-36.0) g/dl RDW 12.9 (11.0-16.0) % Plt Count 259 D (160-400) X10*3/uL MPV 11.8 (9.4-12.4) fL Immature Gran % (Auto) 0.4 (0.0-0.4) % Neut % (Auto) 75.7 H (45-73) % Lymph % (Auto) 15.6 L (20-40) % [place] % (Auto) 7.7 (2-11) % Eos % (Auto) 0.2 (0-4) % Baso % (Auto) 0.4 (0-2) % Lymph # (Auto) 1.8 (1.2-4.9) X10*3/uL [place] # (Auto) 0.9 (0.1-1.2) X10*3/uL Eos # (Auto) 0.0 (0.0-0.4) X10*3/uL Baso # (Auto) 0.1 (0.0-0.2) X10*3/uL Abs Immat Gran (auto) 0.04 H (0.00-0.03) X10*3/uL Absolute Neuts (auto) 8.6 H (2.0-8.3) x10*3/uL Absolute Nucleated RBC 0.000 (0.0-0.012) X10*3/uL Nucleated RBC % (auto) 0.0 (0.0-0.2) /100WBC ESR 72 H (0-15) MM/HR Sodium 137 (135-145) mmol/L Potassium 4.2 (3.3-5.1) mmol/L Chloride 101 (96-108) mmol/L Carbon Dioxide 24 (22-29) mmol/L Anion Gap 16 (12-20) BUN 10 (9-16) mg/dL Creatinine 0.86 (0.5-1.4) mg/dL Estim Creat Clear Calc 85.4 Estimated GFR > 60 Random Glucose 129 H (60-115) mg/dL Lactic Acid (0.5-2.0) mmol/L Calcium 9.6 D (8.4-10.2) mg/dL Total Bilirubin 2.0 H (0.0-1.0) mg/dL AST 25 (5-37) U/L ALT 39 (0-40) U/L Alkaline Phosphatase 88 (39-117) U/L C-Reactive Protein 18.08 H (< or = 0.50) mg/dL Total Protein 8.8 H (6.5-8.0) g/dL Albumin 4.5 (3.5-5.0) g/dL COVID-19 (DEYANIRA) (Negative) COVID-19 Clin Com Influenza Type A (YEHUDA) (Negative) Influenza Type B (YEHUDA) (Negative) Influenza A & B Note S. pyogenes GrpA YEHUDA (Negative) 07/28/22 Range/Units 09:34 WBC (4.8-10.8) X10*3/uL RBC (4.60-5.80) X10*6/uL Hgb (14.0-18.0) g/dl Hct (42.0-52.0) % MCV (80.0-98.0) fL MCH (27.0-33.0) pg MCHC (31.0-36.0) g/dl RDW (11.0-16.0) % Plt Count (160-400) X10*3/uL MPV (9.4-12.4) fL Immature Gran % (Auto) (0.0-0.4) % Neut % (Auto) (45-73) % Lymph % (Auto) (20-40) % [place] % (Auto) (2-11) % Eos % (Auto) (0-4) % Baso % (Auto) (0-2) % Lymph # (Auto) (1.2-4.9) X10*3/uL [place] # (Auto) (0.1-1.2) X10*3/uL Eos # (Auto) (0.0-0.4) X10*3/uL Baso # (Auto) (0.0-0.2) X10*3/uL Abs Immat Gran (auto) (0.00-0.03) X10*3/uL Absolute Neuts (auto) (2.0-8.3) x10*3/uL Absolute Nucleated RBC (0.0-0.012) X10*3/uL Nucleated RBC % (auto) (0.0-0.2) /100WBC ESR (0-15) MM/HR Sodium (135-145) mmol/L Potassium (3.3-5.1) mmol/L Chloride (96-108) mmol/L Carbon Dioxide (22-29) mmol/L Anion Gap (12-20) BUN (9-16) mg/dL Creatinine (0.5-1.4) mg/dL Estim Creat Clear Calc Estimated GFR Random Glucose (60-115) mg/dL Lactic Acid 1.0 (0.5-2.0) mmol/L Calcium (8.4-10.2) mg/dL Total Bilirubin (0.0-1.0) mg/dL AST (5-37) U/L ALT (0-40) U/L Alkaline Phosphatase (39-117) U/L C-Reactive Protein (< or = 0.50) mg/dL Total Protein (6.5-8.0) g/dL Albumin (3.5-5.0) g/dL COVID-19 (DEYANIRA) (Negative) COVID-19 Clin Com Influenza Type A (YEHUDA) (Negative) Influenza Type B (YEHUDA) (Negative) Influenza A & B Note S. pyogenes GrpA YEHUDA (Negative) <Ace Albright MD - Last Filed: 07/28/22 15:55> Independent Interpretation I performed an independent interpretation of an: Ultrasound <NAUPAM Carney - Last Filed: 07/28/22 12:53> Interpretation: My interpretation is in agreement with the radiologist's impression of this imaging study. EXAMINATION: CT SOFT TISSUE NECK WITH CONTRAST CLINICAL INFORMATION: Rule out peritonsillar abscess? COMPARISON: Previous CTA of the neck from 2018? ? TECHNIQUE: Following the intravenous administration of 60 mL of Omnipaque 350 intravenous contrast, helical imaging was performed in the axial plane with generation of coronal and sagittal reformatted images. This CT examination was performed using dose optimization techniques as appropriate, variously including the following: *Automated exposure control *Adjustment of mA and/or kV according to patient size (this includes techniques or standardized protocols for targeted exams where dose is matched to indication/reason for exam; i.e. extremities or head) *Use of iterative reconstruction technique DLP: 739 mGy-cm FINDINGS: There is asymmetric low attenuation in the right pharyngo mucosal space suggestive of a large right peritonsillar abscess. This measures 2 x 4.5 x 6 cm in transverse AP and longitudinal dimension. This extends to the aryepiglottic fold and effaces the right piriform sinus. This extends to the prevertebral soft tissues on the right from C2 to C4. There is diffuse soft tissue thickening of the oropharynx that is slightly high in attenuation or enhancing probably representing enlarged lymphoid tissue. There are enlarged cervical lymph nodes, largest a right submandibular lymph node measuring 1.3 x 2 x 3.6 cm in AP, transverse and longitudinal dimension. The larynx is normal. The epiglottis is normal. There is a soft tissue swelling and small amount of fluid in the right side of the face surrounding the right submandibular gland and right masseter muscle. Visualized intracranial structures are normal. The visualized orbits are normal. There is mild membranous soft tissue thickening in the left maxillary sinus. The salivary glands are otherwise normal. The thyroid gland is normal. . Superior mediastinum is normal. Lung apices are clear. Vascular structures are normal. There are degenerative changes of the cervical spine. No dental abscess. CT/CT soft tissue neck w IV con IMPRESSION: Large right peritonsillar abscess measuring 2 x 4.5 x 6 cm. This extends to the level of the right aryepiglottic fold and effaces the right piriformis sinus. This extends to the prevertebral soft tissues on the right from C2 to C4. There is prominent tissue seen in the oropharynx probably representing lymphoid tissue. There is extensive cervical lymphadenopathy. ? Findings were communicated to Rahel Monaco by telephone on 07/28/2022 at 12:28 PM. Dictated By: Ricarda Cuellar MD Signed By: Electronically signed by Ricarda Cuellar MD 07/28/22 1230 <ANUPAM Carney - Last Filed: 07/28/22 12:53> Attestation Attending Attestation: Evaluated patient, airway intact. Agree with plan to [facility] care with ENT able to perform emergent intervention. <Ace Albright MD - Last Filed: 07/28/22 15:55> Critical Care Time Critical Care Time Critical Care Time: Yes <ANUPAM Carney - Last Filed: 07/28/22 12:53> Total Critical Care Time: 60 <ANUPAM Carney - Last Filed: 07/28/22 12:53> Attestation: I spent 60 minutes of Critical Care Time with this patient. This does not include time spent on separately reported billable procedures. <ANUPAM Carney - Last Filed: 07/28/22 12:53> Discharge Plan Discharge Clinical Impression: Abscess, peritonsillar, Strep pharyngitis <ANUPAM Carney - Last Filed: 07/28/22 12:53> Patient Disposition: [facility] <ANUPAM Carney - Last Filed: 07/28/22 12:53> Transfer Details: [facility] due to lack of ENT resources here <ANUPAM Carney - Last Filed: 07/28/22 12:53> [facility] due to lack of ENT resources here <Ace Albright MD - Last Filed: 07/28/22 15:55> Prescriptions: No Action fenofibrate 54 mg tablet 54 mg PO DAILY 90 Days Qty: 90 3RF ezetimibe 10 mg tablet 10 mg PO DAILY 90 Days Qty: 90 1RF lisinopril 20 mg tablet 20 mg PO DAILY 90 Days Qty: 90 3RF carvedilol 12.5 mg tablet 12.5 mg PO BID 90 Days Qty: 180 3RF Rx Instructions: must administer with a meal/food trazodone 50 mg tablet 50 mg PO BEDTIME PRN (Reason: sleep) 90 Days Qty: 90 3RF fluticasone propionate [Flonase Allergy Relief] 50 mcg/actuation spray,suspension 1 spray intranasal DAILY 30 Days Qty: 16 1RF Rx Instructions: administer into each nostril cholecalciferol (vitamin D3) 25 mcg (1,000 unit) capsule 25 mcg PO DAILY 90 Days Qty: 90 1RF ropinirole 0.5 mg tablet 0.5 mg PO BEDTIME 90 Days Qty: 90 3RF Rx Instructions: administer 1-3 hours before bedtime aspirin [Adult Low Dose Aspirin] 81 mg tablet,delayed release (DR/EC) 81 mg PO DAILY 90 Days Qty: 90 3RF Xarelto 20 mg tablet 20 mg PO QPM Qty: 30 0RF Rx Instructions: must administer with evening meal atorvastatin 80 mg tablet 80 mg PO BEDTIME 90 Days Qty: 90 3RF meclizine 25 mg tablet 25 mg PO TID PRN (Reason: dizziness) 30 Days Qty: 90 6RF metformin 500 mg tablet 500 mg PO BID 90 Days Qty: 180 3RF <ANUPAM Carney - Last Filed: 07/28/22 12:53> Interventions: Acute Care Transfer Worksheet (ED) Last Done: 07/28/22 13:05 <ANUPAM Carney - Last Filed: 07/28/22 12:53> Discharge Date/Time: 07/28/22 14:42 <ANUPAM Carney - Last Filed: 07/28/22 12:53>
[2022-07-28 09:43] LABS: MANUAL DIFF FLAG NO
[2022-07-28] MEDS: 0.9 % Sodium Chloride 1,000 ML 999 ML IV (09:45)
[2022-07-28] MEDS: cefTRIAXone sodium 2 GM in 0.9 % Sodium Chloride 50 ML IV (09:45)
[2022-07-28] MEDS: dexAMETHasone sod phosphate 10 MG/ML VIAL PO (09:46)
[2022-07-28 09:48] LABS: Basophils Absolute Auto 0.1 X10*3/uL (0.0-0.2); Basophils Percent Auto 0.4 % (0-2); Eosinophils Percent Auto 0.2 % (0-4); Hematocrit 42.1 % (42.0-52.0); Imm Gran Abs Auto 0.04 X10*3/uL (0.00-0.03); Imm Gran Pct Auto 0.4 % (0.0-0.4); Lymphocytes Absolute Auto 1.8 X10*3/uL (1.2-4.9); Lymphocytes Percent Auto 15.6 % (20-40); Mean Corpuscular HGB Conc 33.3 g/dl (31.0-36.0); Mean Corpuscular Hemoglobin 29.7 pg (27.0-33.0); Mean Corpuscular Volume 89.4 fL (80.0-98.0); Mean Platelet Volume 11.8 fL (9.4-12.4); Monocytes Absolute Auto 0.9 X10*3/uL (0.1-1.2); Monocytes Percent Auto 7.7 % (2-11); Neutrophils Absolute Auto 8.6 x10*3/uL (2.0-8.3); Neutrophils Percent Auto 75.7 % (45-73); Platelet Count 259 X10*3/uL (160-400); Red Blood Count 4.71 X10*6/uL (4.60-5.80); Red Cell Distribution Width 12.9 % (11.0-16.0); White Blood Count 11.3 X10*3/uL (4.8-10.8)
[2022-07-28 10:04] LABS: IDNOW Serial# 08D9AD1C; Strep A Nucleic Acid Positive (Negative)
[2022-07-28 10:14] LABS: IDNOW Serial# 9DB6401D; Influenza A Negative (Negative); Influenza B2 Negative (Negative)
[2022-07-28 10:18] LABS: IDNOW Serial# BCCEAD1C
[2022-07-28 10:19] LABS: COVID-19 Test Negative (Negative)
[2022-07-28 10:44] LABS: Erythrocyte Sedimentation Rate 72 MM/HR (0-15)
[2022-07-28] MEDS: Ketorolac Tromethamine 15 MG/ML VIAL IVPUSH (11:02)
--- NOTE | 2022-07-28 11:04 | PC.NURSE ---
medicated per provider order for throat pain.
[2022-07-28 11:26] LABS: Alanine Aminotransferase 39 U/L (0-40); Albumin Level 4.5 g/dL (3.5-5.0); Alkaline Phosphatase 88 U/L (39-117); Anion Gap 16 (12-20); Aspartate Amino Transferase 25 U/L (5-37); Blood Urea Nitrogen 10 mg/dL (9-16); C Reactive Protein 18.08 mg/dL (< or = 0.50); Calcium 9.6 mg/dL (8.4-10.2); Carbon Dioxide 24 mmol/L (22-29); Chloride 101 mmol/L (96-108); Creatinine Clr Calc Pharmacy 85.4; Estimated Glomerular Filt Rate > 60; Glucose Random 129 mg/dL (60-115); Potassium 4.2 mmol/L (3.3-5.1); Sodium 137 mmol/L (135-145); Total Protein 8.8 g/dL (6.5-8.0)
[2022-07-28 11:36] VITALS: BP 197/90; PULSE 102; RESP 18; O2SAT 97
[2022-07-28] MEDS: iohexoL 350 MG/ML 100 ML INFUS..BTL 60 ML IV (12:00)
--- NOTE | 2022-07-28 12:30 | PC.NURSE ---
pt returned from CT, currently sleeping rise and fall of chest visible, pt with loud occasional snoring. transfer to acute care will need to be discussed with pt. awaiting seo intern
--- NOTE | 2022-07-28 13:01 | PC.NURSE ---
RN-RN report called into [facility] ED (Katie RN - Triage). per Arthur, transport booked for 1330.
[2022-07-28 13:04] VITALS: BP 146/97; PULSE 73; RESP 18; O2SAT 96
[2022-07-28 13:33] VITALS: PULSE 79; O2SAT 98
--- NOTE | 2022-07-28 14:41 | PC.NURSE ---
pt transferred to [facility]- via [facility]
== END 2022-07-28 14:42 | disposition short-term general hospital (02) ==
PROVIDERS: Physician Assistant Medical; Emergency Provider Emergency Medicine; PCP Internal Medicine
DX: J02.0 Streptococcal pharyngitis (principal); Z20.822 Contact with and (suspected) exposure to COVID-19; Z20.828 Contact with and (suspected) exposure to other viral communicable diseases; Z79.899 Other long term (current) drug therapy
CPT/HCPCS: 36415; 70491; 80053; 83605; 85025; 85652; 86140; 87040; 87502; 87635; 87651; 96361; 96374; 96375; 99285; J0696; J1100; J1885; Q9967

== ENCOUNTER 2022-08-14 15:40 | Outpatient (REF) | payer OTHER, SELFPAY | END 2022-08-14 15:41 | disposition home or self-care (01) | LOC: HO.HAP 15:40 | PROVIDERS: Visit Provider Internal Medicine | DX: Z46.1 Encounter for fitting and adjustment of hearing aid (principal); H90.3 Sensorineural hearing loss, bilateral | CPT/HCPCS: V5266 ==

== ENCOUNTER 2022-09-23 14:30 | Outpatient (REF) | payer OTHER, SELFPAY | END 2022-09-23 14:31 | disposition home or self-care (01) | LOC: HO.HAP 14:30 | PROVIDERS: Visit Provider Internal Medicine | DX: Z46.1 Encounter for fitting and adjustment of hearing aid (principal); H90.6 Mixed conductive and sensorineural hearing loss, bilateral | CPT/HCPCS: V5266 ==

== ENCOUNTER 2022-10-23 13:26 | Outpatient (REF) | payer OTHER, SELFPAY | END 2022-10-23 13:27 | disposition home or self-care (01) | LOC: HO.HAP 13:26 | PROVIDERS: Visit Provider Internal Medicine | DX: Z46.1 Encounter for fitting and adjustment of hearing aid (principal); H90.6 Mixed conductive and sensorineural hearing loss, bilateral | CPT/HCPCS: V5266 ==

== ENCOUNTER 2022-11-26 13:44 | Outpatient (REF) | payer OTHER, SELFPAY | END 2022-11-26 13:45 | disposition home or self-care (01) | LOC: HO.HAP 13:44 | PROVIDERS: Visit Provider Internal Medicine | DX: Z46.1 Encounter for fitting and adjustment of hearing aid (principal); H90.6 Mixed conductive and sensorineural hearing loss, bilateral | CPT/HCPCS: V5266 ==

== ENCOUNTER 2023-02-24 14:27 | Outpatient (REF) | payer OTHER, SELFPAY | END 2023-02-24 14:28 | disposition home or self-care (01) | LOC: HO.HAP 14:27 | PROVIDERS: Visit Provider Internal Medicine | DX: Z46.1 Encounter for fitting and adjustment of hearing aid (principal); H90.6 Mixed conductive and sensorineural hearing loss, bilateral | CPT/HCPCS: V5266 ==

== ENCOUNTER 2023-04-29 11:45 | Outpatient (REF) | payer OTHER, SELFPAY | END 2023-04-29 11:46 | disposition home or self-care (01) | LOC: HO.HAP 11:45 | PROVIDERS: Visit Provider Internal Medicine | DX: Z46.1 Encounter for fitting and adjustment of hearing aid (principal); H90.3 Sensorineural hearing loss, bilateral | CPT/HCPCS: V5266 ==

== ENCOUNTER 2023-08-04 11:28 | Outpatient (REF) | payer OTHER, SELFPAY | END 2023-08-04 11:29 | disposition home or self-care (01) | LOC: HO.HAP 11:28 | PROVIDERS: PCP Internal Medicine; Visit Provider Internal Medicine | DX: Z46.1 Encounter for fitting and adjustment of hearing aid (principal); H90.3 Sensorineural hearing loss, bilateral | CPT/HCPCS: V5266 ==

== ENCOUNTER 2023-09-10 15:45 | Outpatient (AMB) | payer OTHER, SELFPAY ==
--- NOTE | 2023-09-10 16:05 | A.OFFPC_ITS ---
Vital Signs 09/10/23 16:06 Height 5 ft 7 in Weight 160 lb BMI 25.1 BP 140/90 H Blood Pressure Location Lt brachial Position Sitting Intake Visit Reasons: Physical exam Intake Note: Patient here for a physical exam Hair Worker Required: No Accompanied by: Self / Same As Patient Allergies No Known Allergies [No Known Allergies*] Allergy (Verified 09/10/23 16:31) Medication List - Last Reconciled 09/10/23 by Beryl Woodward MD aspirin (Adult Low Dose Aspirin) 81 mg PO DAILY 90 days atorvastatin 80 mg PO BEDTIME 90 days carvedilol 12.5 mg PO BID 90 days cholecalciferol (vitamin D3) 25 mcg PO DAILY 90 days ezetimibe 10 mg PO DAILY 90 days fenofibrate 54 mg PO DAILY 90 days fluticasone propionate 50 mcg/actuation (Flonase Allergy Relief) 1 spray intranasal DAILY 30 days lisinopril 20 mg PO DAILY 90 days meclizine 25 mg PO TID PRN 30 days metformin 500 mg PO BID 90 days ropinirole 0.5 mg PO BEDTIME 90 days trazodone 50 mg PO BEDTIME PRN 90 days Tobacco use date assessed: 09/10/23 Dental Screening Dental Screen Date: 09/10/23 Did you have a dental visit in the last 12 months?: Yes Did you have a dental problem in the last 6 months where you did not have access to dental care?: No Was dental information given to patient?: Patient has dentist HPI HPI Comments History of Present Illness Details This is a 63-year-old male with diabetes mellitus type 2, CVA and pa roxysmal atrial fibrillation that comes today for his physical exam. Last diabetic eye exam was over a year ago. Declines colonoscopy will willing to do Cologuard. No chest pain or shortness on breath. A1c within goal. Atrial fibrillation follow by cardiology. Had CVA in 2018 with no residual deficit. [facility] Medical History (Updated 09/10/23 @ 16:47 by Beryl Woodward MD) Paroxysmal atrial fibrillation Vertigo Restless leg syndrome Essential hypertension Mixed hyperlipidemia Diabetes mellitus CVA (cerebral vascular accident) Surgical History No pertinent past surgical history Family History Father CVD (cardiovascular disease) Hypertension Mother Hypertension Stroke Sister CVD (cardiovascular disease) Hypertension Son No problems noted. Daughter No problems noted. Social History Housing: Apartment Alcohol intake: current Alcohol intake frequency: holidays/special occasions only Alcohol type: beer Patient Tobacco Use Status: Never used Tobacco e-Cigarette/Vaping Use: Never Used Second Hand Smoke Exposure: No service: No Current occupational status: disabled Cognitive needs: No Hearing needs: No Vision needs: No Questionnaire PHQ-9 Over the last 2 weeks, how often have you been bothered by any of the following problems? 1. Little interest or pleasure in doing things: not at all 2. Feeling down, depressed, or hopeless: not at all 3. Trouble falling or staying asleep, or sleeping too much: not at all 4. Feeling tired or having little energy: not at all 5. Poor appetite or overeating: not at all 6. Feeling bad about yourself - or that you are a failure or have let yourself or your family down: not at all 7. Trouble concentrating on things, such as reading the newspaper or watching television: not at all 8. Moving or speaking so slowly that other people could have noticed. Or the opposite - being so fidgety or restless that you have been moving around a lot more than usual: not at all 9. Thoughts that you would be better off or of hurting yourself in some way: not at all Total score: 0 Depression Screening Interpretation: Negative Depression Screening Done: Yes 45915 - PHQ-9 Billing: Yes Source: Developed by Drs. Foreign Blanchard, Ingris Floyd, Michael Arriaga and colleagues, with an educational kendall from [employer]. Thrive Questionnaire Date Thrive assessed: 09/10/23 I am a: Patient What is your living situation today?: I have a steady place to live Within the past 12 months, did the food you bought not last and you didn't have the money to get more?: Never true Within the past 12 months, did you worry whether your food would run out before you got money to buy more?: Never true Do you have trouble paying for medicines?: No Do you have trouble getting transportation to medical appointments?: No Do you have trouble paying your heating and electricity bill?: No Do you have trouble taking care of your child, family member or friend?: No Do you have trouble with day-to-day activities such as bathing, preparing meals, shopping, managing finances, etc.?: No Are you currently unemployed and looking for a job?: No Are you interested in more education?: No Please select the resources that you would like help with: None Currently or been in a relationship where the following occur: no concerns reported THRIVE Score: 0 AUDIT C Alcohol Use Questionnaire (AUDIT-C) 1. How often do you have a drink containing alcohol?: Monthly or less 2. How many drinks containing alcohol do you have on a typical day when you are drinking?: 1 or 2 3. How often do you have six or more drinks on one occasion?: Never Total Score: 1 Score Reviewed/Action Taken: No ROSSY-7 AMB Questionnaire ROSSY-7 Date ROSSY - 7 assessed: 09/10/23 Feeling nervous, anxious, or on edge: 0 = Not at all Not being able to stop or control worryin = Not at all Worrying too much about different things: 0 = Not at all Trouble relaxin = Not at all Being so restless that it is hard to sit still: 0 = Not at all Becoming easily annoyed or irritable: 0 = Not at all Feeling afraid as if something awful might happen: 0 = Not at all Total ROSSY-7 score (0-4 normal; 5-9 mild; 10-14 moderate; 15-21 severe): 0 Source: Developed by Drs. Foreign Blanchard, Ingris Floyd, Michael Arriaga and colleagues, with an educational kendall from [employer]. ROSSY-7 Assessment Billing ROSSY-7 Assessment Tool: ROSSY-7 Assessment 84412 Review of Systems Const All systems reviewed & are unremarkable except as noted in HPI and below Card Denies chest pain at rest, Denies chest pain with activity, Denies edema, Denies irregular heart rhythm, Denies claudication, Denies dyspnea, Denies dyspnea on exertion, Denies orthopnea, Denies paroxysmal nocturnal dyspnea and Denies slow heart rate Resp Denies cough, Denies dyspnea and Denies dyspnea on exertion Neuro Denies behavioral changes, Denies confusion and Denies lack of coordination Psych Denies behavioral changes and Denies confusion Physical exam (Primary Care) Vital Signs: Last Vital Signs BP 140/90 H 09/10/23 16:06 BMI result Body Mass Index 25.1 Tobacco/Smoking Status: Tobacco use Status Tobacco use date assessed 09/10/23 09/10/23 16:12 Patient Tobacco Use Status Never used Tobacco 09/10/23 16:06 e-Cigarette/Vaping Use Never Used 09/10/23 16:06 PHQ-9: PHQ-9 Score PHQ-9: Total score 0 09/10/23 16:23 Depression Screening Interpretation: Negative Thrive Assessment: Date of Thrive Assessment Date Thrive assessed 09/10/23 09/10/23 16:12 Currently or been in a relationship where the following occur: no concerns reported Const General: No confusion Orientation/consciousness: patient oriented x3 and No confusion HENMT Head: Yes normal to inspection, Yes normocephalic and Yes atraumatic Ears: external ears normal Eyes General: appearance normal, both eyes and all related structures Eyelids: Yes eyelids normal Conjunctivae: conjunctivae normal Neck Neck: Yes normal visual inspection and Yes supple Resp Effort & Inspection: normal respiratory effort Auscultation: clear to auscultation bilaterally Cardio Jugular venous distension: no JVD Rate: regular rate Rhythm: regular rhythm Heart sounds: S1 normal heart sound present and S2 normal heart sound present GI Inspection: Yes normal to inspection Palpation (GI): Soft to palpation and nontender Auscultation: normal bowel sounds Skin General skin exam: no rashes or lesions noted Neuro General: patient oriented x3, no focal motor deficits and No confusion Extrem General: Yes full ROM Psych Appearance: grossly normal Results AMB Hemoglobin A1c AMB Hemoglobin A1c 6.1 % Last Edit by SHAKEEL Stout on 09/10/23 16:2 3 Results Reviewed Results Reviewed: Laboratory Last Values Hgb A1c (Clinic) 6.1 % (4.0-6.0) H 09/10/23 16:17 Assessment and Plan Assessment & Plan (1) Physical exam: Code(s): Z00.00 - Encounter for general adult medical examination without abnormal findings Plan: Repeat in a year. 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 A1c goal is equal or less than 7%. (3) CVA (cerebral vascular accident): Comment: At left middle cerebral artery with no residual deficit Diagnosed in 2018 Code(s): I63.9 - Cerebral infarction, unspecified Qualifiers: CVA mechanism: embolism Precerebral and cerebral artery: middle cerebral artery Laterality of affected vessel: left Qualified Code(s): I63.412 - Cerebral infarction due to embolism of left middle cerebral artery Plan: Continue aspirin for secondary prophylaxis. Continue statins. LDL goal is less than 70. (4) Paroxysmal atrial fibrillation: Code(s): I48.0 - Paroxysmal atrial fibrillation Plan: Follow-up with Cardiology. The goal is heart rate control. Orders: Orders Comprehensive [facility]. Panel Fast Today E11.9 - Type 2 diabetes mellitus without complications AMB Hemoglobin A1c Today E11.9 - Type 2 diabetes mellitus without complications Lipid Panel Today E78.5 - Hyperlipidemia, unspecified Microalbumin, Random (w Creat) Today E11.9 - Type 2 diabetes mellitus without complications Referrals Cologuard Test Z12.11 - Encounter for screening for malignant neoplasm of colon, Z12.12 - Encounter for screening for malignant neoplasm of rectum Ophthalmology Referral E11.9 - Type 2 diabetes mellitus without complications Review Patient declined Colonoscopy: 09/10/23 Coding Level of Care Code Est Pt Prev Care 40-64y(89155) Diagnoses Physical exam Z00.00 Type 2 diabetes mellitus without complication, without long-term current use of insulin E11.9 Diabetes mellitus type: type 2 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
[2023-09-10 16:06] VITALS: BP 140/90; BMI 25.1
== END 2023-09-10 16:44 | disposition home or self-care (01) ==
PROVIDERS: PCP Internal Medicine; Visit Provider Internal Medicine
DX: Z00.00 Encounter for general adult medical examination without abnormal findings (principal); E11.9 Type 2 diabetes mellitus without complications; I63.412 Cerebral infarction due to embolism of left middle cerebral artery; I48.0 Paroxysmal atrial fibrillation
CPT/HCPCS: 83036; 99396

== ENCOUNTER 2023-11-05 14:42 | Outpatient (REF) | payer OTHER, SELFPAY | END 2023-11-05 14:43 | disposition home or self-care (01) | LOC: HO.HAP 14:42 | PROVIDERS: Visit Provider Student in an Organized Health Care Education/Training Program | DX: Z46.1 Encounter for fitting and adjustment of hearing aid (principal); H90.3 Sensorineural hearing loss, bilateral | CPT/HCPCS: V5266 ==

== ENCOUNTER 2024-01-12 10:21 | Outpatient (REF) | payer OTHER, SELFPAY ==
[2024-01-12 12:16] LABS: Alanine Aminotransferase 46 U/L (0-40); Albumin Level 4.2 g/dL (3.5-5.0); Alkaline Phosphatase 51 U/L (39-117); Anion Gap 11 (12-20); Aspartate Amino Transferase 27 U/L (5-37); Bilirubin Total 0.7 mg/dL (0.0-1.0); Blood Urea Nitrogen 9 mg/dL (9-16); Carbon Dioxide 25 mmol/L (22-29); Chloride 107 mmol/L (96-108); Cholesterol 248 mg/dL (<200); Estimated Glomerular Filt Rate > 60; Glucose Fasting 129 mg/dL (60-99); HDL Cholesterol 37 mg/dL (>40); LDL Cholesterol Calculated 158 mg/dL (<100); Potassium 3.9 mmol/L (3.3-5.1); Sodium 139 mmol/L (135-145); Total Protein 7.9 g/dL (6.5-8.0); Triglycerides 269 mg/dL (<150)
[2024-01-12 14:09] LABS: Creatinine Urine 106.82 mg/dL; Microalbum/Creatinine Ratio Ur 15.9 ug/mg cr (<30)
== END 2024-01-12 10:22 | disposition home or self-care (01) ==
LOC: HO.HHCL 10:21
PROVIDERS: Visit Provider Internal Medicine
DX: E11.9 Type 2 diabetes mellitus without complications (principal); E78.5 Hyperlipidemia, unspecified
CPT/HCPCS: 36415; 80053; 80061; 82043; 82570

== ENCOUNTER 2024-03-29 14:35 | Outpatient (REF) | payer OTHER, SELFPAY | END 2024-03-29 14:36 | disposition home or self-care (01) | LOC: HO.HAP 14:35 | PROVIDERS: Visit Provider Internal Medicine | DX: Z46.1 Encounter for fitting and adjustment of hearing aid (principal); H90.6 Mixed conductive and sensorineural hearing loss, bilateral | CPT/HCPCS: V5266 ==

== ENCOUNTER 2024-07-19 15:27 | Outpatient (REF) | payer OTHER, SELFPAY ==
--- OUTSIDE RECORDS SUMMARY | 2024-07-19 18:20 | XMS_ITS | Encounter Summary ---
Author Organization [facility] Address [address] [place] [address] Care Team Providers Care Duck Bill Operator Name Role Phone Unavailable Primary Care Provider Unavailabl e Encounter Details Date Type Department Care Team (Latest Contact Info) Description 10/12/2018 Abstract [facility] CONVERSIONS Dental, Provider, DDS Social History Tobacco Use Types Packs/Day Years Used Date Smoking Tobacco: Never Assessed Sex and Gender Information Value Date Recorded Sex Assigned at Male 01/27/2022 10:35 AM EDT Legal Sex Male 10:35 AM EDT Gender Identity Male 01/27/2022 10:35 AM EDT Sexual Orientation Straight 01/27/2022 10 :35 AM EDT documented as of this encounter Plan of Treatment Not on file documented as of this encounter Visit Diagnoses Not on filedocumented in this encounter
--- OUTSIDE RECORDS SUMMARY | 2024-07-19 18:20 | XMS_ITS | Clinical Summary ---
Author Organization [facility] Address [address] [place] [address] Care Team Providers Care Photovoltaic Panel Installer Name Role Phone Beryl Berkowitz MD Primary Care Provider [phone] Allergies No known active allergies Medications amoxicillin-cla vulanate (AUGMENTIN) 875-125 MG per tablet Take 1 tablet by mouth 2 (two) times a day. Take as directed or until you run out 20 tablet 3 Active methylPREDNISol one (MEDROL DOSEPAK) 4 MG tablet Take as directed. Be sure to take all the tablets in decreasing doses as stated in the blu 21 tablet 3 Active Social History Tobacco Use Types Packs/Day Years Used Date Smoking Tobacco: Never Assessed Sex and Gender Information Value Date Recorded Sex Assigned at Male 07/28/2022 3:38 PM EDT Legal Sex Male 12:52 PM EDT Gender Identity Male 07/28/2022 3:38 PM EDT Sexual Orientation Heterosexual (straight) 07/28 3:38 PM EDT Last Filed Vital Signs Vital Sign Reading Time Taken Comments Blood Pressure 136/78 07/29/2022 12:29 AM EDT Pulse 69 07/29/2022 12:29 AM EDT Temperature 36.3 ??C (97.3 ??F) 07/29/2022 12:29 AM E DT Respiratory Rate 18 07/29/2022 12:29 AM EDT Oxygen Saturation 96% 07/29/2022 12:29 AM EDT Inhaled Oxygen Concentration - - Weight - - Height - - Body Mass Index - - Plan of Treatment Health Maintenance Due Date Last Done Comments Hepatitis C Virus Screening 1962 HIV Screening 1975 DTaP/Tdap/Td Vaccines (1 - Tdap) 1981 Colonoscopy 2007 Pneumococcal Vaccines 50+ (1 of 1 - PCV) 01/07/2012 Zoster (Shingles) Vaccine (1 of 2) 01/07/2012 Influenza Vaccine 10/29/2023 COVID-19 Vaccine (1 - 2023-2 5 season) 2023 RSV Vaccine 60 years and old er and Patients (1 - 1-dose 75+ series) 2037 Hepatitis B Vaccines Aged Out No long er eligible based on patient's age to complete this topic Pneumococcal Vaccine: Pediat lisa (0-5 Years) and At-Risk Patients (6 to 49 Years) Aged Out No longer eligible b ased on patient's age to complete this topic Insurance MEDICAID OUT OF STATE [facility] [address] [place] [address] Care Teams Photovoltaic Panel Installer Relationship Specialty Start Date End Date Beryl Berkowitz MD [address] [place], [place] [id number] PCP - General Family Medicine 07/28/22
--- OUTSIDE RECORDS SUMMARY | 2024-07-19 18:20 | XMS_ITS | Clinical Summary ---
Author Organization [employer] [facility] Address [address] [place] [address] 7t [place] [address] Care Team Providers Care Airline Operations Agent Name Role Phone Unavailable Primary Care Provider Unavailabl e Allergies No known active allergies Medications Aspirin Low Dose 81 MG EC tablet 10/25/2022 Active D3-1000 25 MCG (1000 UT) capsule TOME FAM TABLETA POR V A ORAL TODOS LOS D POR 90 CAMPOS 08/16/2022 Active methylPREDNISol one (Medrol Dospak) 4 MG tablets TOME 6 TABLETAS EL PRIMER D A SEG N LO INDICA EL PAQUETE, Y REDUZCA 1 TABLETA CADA D A POR 6 D 07/30/2022 Active rOPINIRole (Requip) 0.5 MG tablet 10/25/2022 Active Active Problems Problem Noted Date Diagnosed Date Dental plaque 10/30/2022 Dental abscess 10/30/2022 Dental caries 10/30/2022 Social History Tobacco Use Types Packs/Day Years Used Date Smoking Tobacco: Never Passive Smoke Exposure: Never Smokeless Tobacco: Never Tobacco Cessation:Counseling Given: Not Answered Alcohol Use Standard Drinks/Week Comments Defer 0 (1 standard drink = 0.6 oz pur e alcohol) Sex and Gender Information Value Date Recorded Sex Assigned at Male 01/27/2022 10:35 AM EDT Legal Sex Male 10:35 AM EDT Gender Identity Male 01/27/2022 10:35 AM EDT Sexual Orientation Straight 01/27/2022 10 :35 AM EDT Last Filed Vital Signs Vital Sign Reading Time Taken Comments Blood Pressure 124/88 05/29/2023 9:02 AM EST Pulse 74 10/30/2022 1:11 PM EDT Temperature - - Respiratory Rate - - Oxygen Saturation - - Inhaled Oxygen Concentration - - Weight - - Height - - Body Mass Index - - Plan of Treatment Health Maintenance Due Date Last Done Comments CT Colonography 1962 Colonoscopy 1962 Colorectal Cancer Screening 1962 Depression Screening 1962 FIT DNA/Cologuard 1962 FIT 1962 FOBT 1962 HIV Screening 1962 Lipid Panel 1962 SDOH Screening 1962 Sigmoidoscopy 1962 Alcohol/Substance Use Screening 1974 Hepatitis C Screening 01/07/1980 Zoster Vaccines (2 of 2) 12/18/2022 10/23/2022 Dental Oral Exam 11/27/2023 05/28/2023, 05/2022, 07/09/2021, Additional history exists COVID-19 Vaccine ( season) 2023 02/06/2021, 09/10/2020, 08/06/2020 Influenza Vaccine (#1) 2023 , 01/17/2022, 11/27/2020, Additional history exists Dental Prophylaxis 01/02/2024 07/02/2023, 0 10/30/2022, 08/29/2021, Additional history exists Dental X-Ray: Bitewings 05/28/2024 05/28/19 24, 10/30/2022, 07/09/2021, Additional history exists Tobacco Screening 07/01/2024 07/02/2023 Dental X-Ray: Full Mouth 10/31/2025 10/30/2022, 08/28 DTaP/Tdap/Td Vaccines (3 - Td or Tdap) 10/23/2032 10/23/2022, 11/11/2018 RSV Patients and Patients Aged 60 years or older (1 - 1-dose 75+ series) 2037 Pneumococcal Vaccine: 50+ Years Completed 10/23/2022 HIB Vaccines Aged Out No longer eligi ble based on patient's age to complete this topic HPV Vaccines Aged Out No longer eligi ble based on patient's age to complete this topic Hepatitis A Vaccines Aged Out No long er eligible based on patient's age to complete this topic Hepatitis B Vaccines Aged Out No long er eligible based on patient's age to complete this topic IPV Vaccines Aged Out No longer eligi ble based on patient's age to complete this topic Meningococcal Vaccine Aged Out No cat darinel eligible based on patient's age to complete this topic RSV under 20 months Aged Out No longe r eligible based on patient's age to complete this topic Rotavirus Vaccines Aged Out No longer eligible based on patient's age to complete this topic Procedures Procedure Name Priority Date/Time Associated Diagnosis Comments PROPHYLAXIS - ADULT Routine 07/02/2023 9 :00 AM EDT BITEWINGS - 4 RADIOGRAPHIC IMAGES Routine 05/28/2023 11:00 AM EST PERIODIC ORAL EVALUATION - ESTABLISHED PATIENT Routine 05/28/2023 11:00 AM EST INTRAORAL - COMPLETE SERIES OF RADIOGRAPHIC IMAGES Routine 10/30/2022 1:00 PM EDT Dental plaque Dental abscess Dental caries from Last 3 Months or Most Recently Relevant to Health Maintenance Insurance [facility] MEDICAID STAND ADULT
--- OUTSIDE RECORDS SUMMARY | 2024-07-19 18:20 | XMS_ITS | Encounter Summary ---
Author Organization [employer] [facility] Address [address] [place] [address] Care Team Providers Care Service Car Driver Name Role Phone Unavailable Primary Care Provider Unavailabl e Encounter Details Date Type Department Care Team (Latest Contact Info) Description 08/29/2021 Abstract C CONVERSIONS Dental, Provider, DDS Social History Tobacco [...]
== END 2024-07-19 15:28 | disposition home or self-care (01) ==
LOC: HO.HAP 15:27
PROVIDERS: Visit Provider Internal Medicine
DX: Z46.1 Encounter for fitting and adjustment of hearing aid (principal); H90.6 Mixed conductive and sensorineural hearing loss, bilateral
CPT/HCPCS: V5266

== ENCOUNTER 2024-07-21 08:26 | Outpatient (REF) | payer OTHER, SELFPAY ==
--- NOTE | ~2024-07-21 | XR_ITS ---
EXAMINATION: XR LUMBAR SPINE 2-3 VIEWS HISTORY: M54.50 - Low back pain, unspecified COMPARISON: There are no prior studies for comparison. FINDINGS: AP, lateral, and coned down views of the lumbar spine are submitted. Osseous mineralization is normal. Five nonrib-bearing lumbar vertebral bodies are identified, maintaining normal height and alignment without evidence of fracture or spondylolisthesis. Minimal anterior spurring is seen at several levels. The intervertebral disc spaces are preserved. The posterior elements are intact. The visualized paraspinal soft tissues are unremarkable. XR/XR lumbar spine 2-3V IMPRESSION: Minimal degenerative changes. Electronically signed by: Foreign Dangelo MD 07/22/2024 09:34 AM EDT
[2024-07-21 09:22] LABS: MANUAL DIFF FLAG NO
[2024-07-21 09:43] LABS: Basophils Percent Auto 0.7 % (0-2); Eosinophils Absolute Auto 0.3 X10*3/uL (0.0-0.4); Hematocrit 43.6 % (42.0-52.0); Hemoglobin 14.6 g/dl (14.0-18.0); Imm Gran Abs Auto 0.02 X10*3/uL (0.00-0.03); Imm Gran Pct Auto 0.3 % (0.0-0.4); Lymphocytes Absolute Auto 2.7 X10*3/uL (1.2-4.9); Lymphocytes Percent Auto 45.2 % (20-40); Mean Corpuscular HGB Conc 33.5 g/dl (31.0-36.0); Mean Corpuscular Hemoglobin 29.5 pg (27.0-33.0); Mean Corpuscular Volume 88.1 fL (80.0-98.0); Mean Platelet Volume 12.1 fL (9.4-12.4); Monocytes Absolute Auto 0.4 X10*3/uL (0.1-1.2); Monocytes Percent Auto 6.6 % (2-11); Neutrophils Absolute Auto 2.6 x10*3/uL (2.0-8.3); Neutrophils Percent Auto 42.2 % (45-73); Platelet Count 199 X10*3/uL (160-400); Red Blood Count 4.95 X10*6/uL (4.60-5.80); Red Cell Distribution Width 12.6 % (11.0-16.0); White Blood Count 6.1 X10*3/uL (4.8-10.8)
--- OUTSIDE RECORDS SUMMARY | 2024-07-21 09:48 | XMS_ITS | Clinical Summary ---
Author Organization [employer] [facility] Address [address] [place] [address] [address] [place] [address] Care Team Providers Care Sql Server Dba Developer Name Role Phone Unavailable Primary Care Provider [...] Most Recently Relevant to Health Maintenance Insurance [facility]AL-[facility] MEDICAID STAND ADULT
--- OUTSIDE RECORDS SUMMARY | 2024-07-21 09:48 | XMS_ITS | Encounter Summary ---
Author Organization [employer] [facility] Address [address]t [place] [address] Care Team Providers Care Software Publisher Name Role Phone Unavailable Primary Care Provider Unavailabl e Encounter Details Date Type Department Care Team (Latest Contact Info) Description 10/12/2018 Abstract [facility] CONVERSIONS Dental, Provider, DDS Social History Tobacco [...]
--- OUTSIDE RECORDS SUMMARY | 2024-07-21 09:48 | XMS_ITS | Encounter Summary ---
Author Organization [employer] [facility] Address [address]t [place] [address] Care Team Providers Care Financial Representative Name Role Phone Unavailable Primary Care Provider [...]
--- OUTSIDE RECORDS SUMMARY | 2024-07-21 09:48 | XMS_ITS | Clinical Summary ---
Author Organization [facility] Address [address] [place] [address] Care Team Providers Care Branch Account Manager Name Role Phone Beryl Berkowitz MD Primary Care Provider [phone] Allergies No known active allergies Medications amoxicillin-cla [...] this topic Insurance [place] OF [place] [facility] [place] Care Teams Branch Account Manager Relationship Specialty Start Date End Date Beryl Berkowitz MD [address] [place] [address] PCP - General Family Medicine 07/28/22
[2024-07-21 10:13] LABS: Creatinine Urine 84.41 mg/dL; Microalbum/Creatinine Ratio Ur 18.9 ug/mg cr (<30)
[2024-07-21 10:27] LABS: Alanine Aminotransferase 55 U/L (0-40); Albumin Level 4.4 g/dL (3.5-5.0); Alkaline Phosphatase 61 U/L (39-117); Anion Gap 11 (12-20); Aspartate Amino Transferase 37 U/L (5-37); Blood Urea Nitrogen 10 mg/dL (9-16); Calcium 9.6 mg/dL (8.4-10.2); Carbon Dioxide 28 mmol/L (22-29); Chloride 105 mmol/L (96-108); Cholesterol 263 mg/dL (<200); Estimated Glomerular Filt Rate > 60; Glucose Fasting 107 mg/dL (60-99); HDL Cholesterol 40 mg/dL (>40); Iron 88 mcg/dL (45-160); LDL Cholesterol Calculated 165 mg/dL (<100); Percent Iron Saturation 31 % (15-50); Sodium 140 mmol/L (135-145); Total Iron Binding Capacity 288 mcg/dL (228-428); Total Protein 8.6 g/dL (6.5-8.0); Triglycerides 291 mg/dL (<150); Unsaturated Iron Binding 200 ug/dL
[2024-07-21 10:42] LABS: Vitamin D 25-OH Total 21.4 ng/mL (>30)
[2024-07-21 10:46] LABS: Folate 13.2 ng/mL (> or = 4.0); Vitamin B12 439 pg/mL (200-900)
== END 2024-07-21 08:27 | disposition home or self-care (01) ==
LOC: HO.LAB 08:26
PROVIDERS: PCP Internal Medicine; Visit Provider Internal Medicine
DX: E78.5 Hyperlipidemia, unspecified (principal); R80.9 Proteinuria, unspecified; E53.8 Deficiency of other specified B group vitamins; E11.9 Type 2 diabetes mellitus without complications; D64.9 Anemia, unspecified; E55.9 Vitamin D deficiency, unspecified; M54.50 Low back pain, unspecified
CPT/HCPCS: 36415; 72100; 80053; 80061; 82043; 82306; 82570; 82607; 82746; 83036; 83540; 85025; 96127; 99212

== ENCOUNTER 2024-07-21 08:26 | Outpatient (AMB) | payer OTHER, SELFPAY ==
[2024-07-21 08:32] VITALS: BP 138/82; BMI 25.2
--- NOTE | 2024-07-21 08:32 | MHC.PC.OV ---
Vital Signs 07/21/24 08:32 Height 5 ft 7 in Weight 161 lb BMI 25.2 BP 138/82 Blood Pressure Location Lt brachial Position Sitting Intake Visit Reasons: allergies Basting Machine Operator Required: No Accompanied by: Self / Same As Patient Allergies No Known Allergies [No Known Allergies*] Allergy (Verified 07/21/24 08:36) Medication List - Last Reconciled 07/21/24 by Beryl Woodward MD aspirin (Adult Low Dose Aspirin) 81 mg PO DAILY 90 days atorvastatin 80 mg PO BEDTIME 90 days carvedilol 12.5 mg PO BID 90 days cholecalciferol (vitamin D3) 25 mcg PO DAILY 90 days ezetimibe 10 mg PO DAILY 90 days fenofibrate 54 mg PO DAILY 90 days fluticasone propionate 50 mcg/actuation (Flonase Allergy Relief) 1 spray intranasal DAILY 30 days lisinopril 20 mg PO DAILY 90 days meclizine 25 mg PO TID PRN 30 days metformin 500 mg PO BID 90 days ropinirole 0.5 mg PO BEDTIME 90 days trazodone 50 mg PO BEDTIME PRN 90 days Tobacco use date assessed: 07/21/24 Dental Screening Dental Screen Date: 07/21/24 Did you have a dental visit in the last 12 months?: Yes Did you have a dental problem in the last 6 months where you did not have access to dental care?: No Was dental information given to patient?: Patient has dentist HPI HPI Comments History of Present Illness Details The patient is a 64-year-old male presenting with hypercholesterolemia and low back pain. His last cholesterol evaluation was conducted a year prior and indicated elevated levels, necessitating reevaluation. The current treatment plan for hypercholesterolemia includes atorvastatin and ezetimibe, aiming for an LDL cholesterol level below 70 mg/dL. A repeat fasting lipid panel is planned. In addition, the patient experiences low back pain without clear etiology. An X-ray is advised for further analysis, considering postural habits and the potential for arthritis. The patient denies urinary symptoms, which could correlate with renal involvement. He has a history of a cerebrovascular accident, managed hypertension using carvedilol and lisinopril, type 2 diabetes mellitus controlled with metformin, and allergic rhinitis, for which his symptom triggers include pollen and freshly cut grass. Insomnia is no longer a significant issue, as sleep management without medication currently proves effective. [facility] Medical History (Updated 07/21/24 @ 08:50 by Beryl Woodward MD) Paroxysmal atrial fibrillation Vertigo Restless leg syndrome Essential hypertension Mixed hyperlipidemia Diabetes mellitus CVA (cerebral vascular accident) Surgical History No pertinent past surgical history Family History Father CVD (cardiovascular disease) Hypertension Mother Hypertension Stroke Sister CVD (cardiovascular disease) Hypertension Son No problems noted. Daughter No problems noted. Social History Housing: Apartment Alcohol intake: current Alcohol intake frequency: holidays/special occasions only Alcohol type: beer Patient Tobacco Use Status: Never used Tobacco e-Cigarette/Vaping Use: Never Used Second Hand Smoke Exposure: No service: No Current occupational status: disabled Cognitive needs: No Hearing needs: No Vision needs: No Questionnaire PHQ-9 Over the last 2 weeks, how often have you been bothered by any of the following problems? 1. Little interest or pleasure in doing things: not at all 2. Feeling down, depressed, or hopeless: not at all 3. Trouble falling or staying asleep, or sleeping too much: not at all 4. Feeling tired or having little energy: not at all 5. Poor appetite or overeating: not at all 6. Feeling bad about yourself - or that you are a failure or have let yourself or your family down: not at all 7. Trouble concentrating on things, such as reading the newspaper or watching television: not at all 8. Moving or speaking so slowly that other people could have noticed. Or the opposite - being so fidgety or restless that you have been moving around a lot more than usual: not at all 9. Thoughts that you would be better off or of hurting yourself in some way: not at all Total score: 0 Depression Screening Interpretation: Negative Depression Screening Done: Yes 63236 - PHQ-9 Billing: Yes Source: Developed by Drs. Foreign Blanchard, Ingris Floyd, Michael Arriaga and colleagues, with an educational kendall from [employer]. Thrive Questionnaire Date Thrive assessed: 07/21/24 I am a: Patient What is your living situation today?: I have a steady place to live Within the past 12 months, did the food you bought not last and you didn't have the money to get more?: Never true Within the past 12 months, did you worry whether your food would run out before you got money to buy more?: Never true Do you have trouble paying for medicines?: No Do you have trouble getting transportation to medical appointments?: No Do you have trouble paying your heating and electricity bill?: No Do you have trouble taking care of your child, family member or friend?: No Do you have trouble with day-to-day activities such as bathing, preparing meals, shopping, managing finances, etc.?: No Are you currently unemployed and looking for a job?: No Are you interested in more education?: No Please select the resources that you would like help with: None Currently or been in a relationship where the following occur: No concerns reported THRIVE Score: 0 AUDIT C Alcohol Use Questionnaire (AUDIT-C) 1. How often do you have a drink containing alcohol?: Monthly or less 2. How many drinks containing alcohol do you have on a typical day when you are drinking?: 1 or 2 3. How often do you have six or more drinks on one occasion?: Never Total Score: 1 Score Reviewed/Action Taken: No ROSSY-7 AMB Questionnaire ROSSY-7 Date ROSSY - 7 assessed: 07/21/24 Feeling nervous, anxious, or on edge: 0 = Not at all Not being able to stop or control worryin = Not at all Worrying too much about different things: 0 = Not at all Trouble relaxin = Not at all Being so restless that it is hard to sit still: 0 = Not at all Becoming easily annoyed or irritable: 0 = Not at all Feeling afraid as if something awful might happen: 0 = Not at all Total ROSSY-7 score (0-4 normal; 5-9 mild; 10-14 moderate; 15-21 severe): 0 Source: Developed by Drs. Foreign Blanchard, Ingris Floyd, Michael Arriaga and colleagues, with an educational kendall from [employer]. ROSSY-7 Assessment Billing ROSSY-7 Assessment Tool: ROSSY-7 Assessment 67305 Review of Systems Const All systems reviewed & are unremarkable except as noted in HPI and below Eyes Reports no additional complaints, Denies change in vision and Denies other visual disturbances Card Denies chest pain at rest, Denies chest pain with activity, Denies edema, Denies irregular heart rhythm, Denies claudication, Denies dyspnea, Denies dyspnea on exertion, Denies orthopnea, Denies paroxysmal nocturnal dyspnea and Denies slow heart rate Resp Denies cough, Denies dyspnea and Denies dyspnea on exertion GI Denies abdominal pain, Denies change in bowel habits, Denies excessive flatus, Denies nausea and Denies vomiting Physical exam (Primary Care) Vital Signs: Last Vital Signs BP 138/82 07/21/24 08:32 BMI result Body Mass Index 25.2 Tobacco/Smoking Status: Tobacco use Status Tobacco use date assessed 07/21/24 07/21/24 08:37 Patient Tobacco Use Status Never used Tobacco 07/21/24 08:37 e-Cigarette/Vaping Use Never Used 07/21/24 08:37 PHQ-9: PHQ-9 Score PHQ-9: Total score 0 07/21/24 08:43 Depression Screening Interpretation: Negative Thrive Assessment: Date of Thrive Assessment Date Thrive assessed 07/21/24 07/21/24 08:37 Currently or been in a relationship where the following occur: No concerns reported Resp Effort & Inspection: normal respiratory effort Auscultation: clear to auscultation bilaterally Cardio Jugular venous distension: no JVD Rate: regular rate Rhythm: regular rhythm Heart sounds: S1 normal heart sound present and S2 normal heart sound present Extrem General: Yes full ROM Results AMB Hemoglobin A1c AMB Hemoglobin A1c 6.7 % Last Edit by SHAKEEL Stout on 07/21/24 08:48 Coding Level of Care Code Est Pt Level 4 (64258) Complex EM visit Add On G2211 Diagnoses Seasonal allergic rhinitis due to pollen J30.1 Allergic rhinitis trigger: pollen Allergic rhinitis seasonality: seasonal Type 2 diabetes mellitus without complication, without long-term current use of insulin E11.9 Diabetes mellitus type: type 2 Diabetes mellitus termite exterminator insulin use: without senior care use Diabetes mellitus complication status: without complication Cerebrovascular accident (CVA) due to embolism of left middle cerebral artery I63.412 CVA mechanism: embolism Precerebral and cerebral artery: middle cerebral artery Laterality of affected vessel: left Essential hypertension I10 Mixed hyperlipidemia E78.2 Lumbar pain M54.50 Additional Codes PHQ-9 - 46105 - PHQ-9 Billing: Yes ([id number]) ROSSY-7 Assessment Billing - ROSSY-7 Assessment Tool: ROSSY-7 Assessment 14150 ([id number]) Time Spent (min) 24 Assessment & Plan Assessment & Plan (1) Allergic rhinitis: Code(s): J30.9 - Allergic rhinitis, unspecified Category: Medical Qualifiers: Allergic rhinitis trigger: pollen Allergic rhinitis seasonality: seasonal Qualified Code(s): J30.1 - Allergic rhinitis due to pollen (2) Diabetes mellitus: Code(s): E11.9 - Type 2 diabetes mellitus without complications Category: Medical Qualifiers: Diabetes mellitus type: type 2 Diabetes mellitus senior care insulin use: without termite exterminator use Diabetes mellitus complication status: without complication Qualified Code(s): E11.9 - Type 2 diabetes mellitus without complications (3) CVA (cerebral vascular accident): Comment: At left middle cerebral artery with no residual deficit Diagnosed in 2018 Code(s): I63.9 - Cerebral infarction, unspecified Category: Medical Qualifiers: CVA mechanism: embolism Precerebral and cerebral artery: middle cerebral artery Laterality of affected vessel: left Qualified Code(s): I63.412 - Cerebral infarction due to embolism of left middle cerebral artery (4) Essential hypertension: Code(s): I10 - Essential (primary) hypertension Category: Medical (5) Mixed hyperlipidemia: Code(s): E78.2 - Mixed hyperlipidemia Category: Medical (6) Lumbar pain: Code(s): M54.50 - Low back pain, unspecified Category: Medical Plan A fasting lipid panel is scheduled for September to assess LDL cholesterol levels, with current statin and ezetimibe therapy to continue. Lumbar spine X-ray is recommended in order to understand the underlying cause of low back pain. Antihistamines and nasal spray have been prescribed for managing allergic rhinitis. The patient?s cardiovascular and metabolic health management, including stroke prevention with low-dose aspirin, remains in effect. The patient's diabetes and hypertension treatment includes metformin, carvedilol, and lisinopril, which continue as per the management strategy. Lifestyle factors related to posture will be considered to alleviate back pain. Patient was informed and verbally consented to the use of an ambient scribe for clinic note documentation during this visit. I discussed the necessity of reevaluating the patient?s lipid levels due to previous high cholesterol findings. We will perform a fasting lipid panel at the next check-up in September. Additionally, I explained the rationale behind the lumbar spine X-ray to determine the cause of the patient's low back pain, taking posture into consideration. We reviewed the treatment strategy for allergic rhinitis, including environmental triggers, and agreed upon the use of medications like antihistamines and a nasal spray. The patient understands the importance of ongoing prevention for cerebrovascular incidents using aspirin and is aware of the necessity for regular follow-ups, particularly given the sporadic nature of cardiology appointments. Orders: Orders Complete Blood Count Auto Diff Today D64.9 - Anemia, unspecified Vitamin D 25-OH Total Today E55.9 - Vitamin D deficiency, unspecified AMB Hemoglobin A1c Today E11.9 - Type 2 diabetes mellitus without complications XR lumbar spine 1V Today M54.50 - Low back pain, unspecified Lipid Panel Today E78.5 - Hyperlipidemia, unspecified Microalbumin, Random (w Creat) Today R80.9 - Proteinuria, unspecified IRON PROFILE Today D64.9 - Anemia, unspecified Vitamin B12 and Folate Today E53.8 - Deficiency of other specified B group vitamins Comprehensive Hoffman. Panel Fast Today E11.9 - Type 2 diabetes mellitus without complications Medications: New cetirizine (All Day Allergy (cetirizine)) 10 mg PO DAILY 90 days PRN 90 tabs 1RF allergy symptoms J30.9 - Allergic rhinitis, unspecified Refilled fluticasone propionate 50 mcg/actuation (Flonase Allergy Relief) administer into each nostril 1 spray intranasal DAILY 30 days 16 grams 1RF J30.9 - Allergic rhinitis, unspecified Discontinued meclizine Discontinued Reason: Patient Completed Course 25 mg PO TID 30 days PRN 90 tabs 6RF dizziness R42 - Dizziness and giddiness trazodone Discontinued Reason: Patient Completed Course 50 mg PO BEDTIME 90 days PRN 90 tabs 3RF sleep E11.9 - Type 2 diabetes mellitus without complications Patient Instructions: - Continue taking statins and ezetimibe for cholesterol management. - Schedule and complete fasting lipid labs in September. - Use recommended nasal spray and antihistamines for allergy symptoms. - Follow up for lumbar spine X-ray. - Maintain current diabetes and hypertension management medications. - Monitor posture to help alleviate back discomfort. - Contact me for any new symptoms or concerns.
--- OUTSIDE RECORDS SUMMARY | 2024-07-21 08:47 | XMS_ITS | Clinical Summary ---
Author Organization [employer] [facility] Address [address] [place] [address] [address]t [place] [address] Care Team Providers Care Motorized Squad Commanding Officer Name Role Phone Unavailable Primary Care Provider [...] Most Recently Relevant to Health Maintenance Insurance [facility] MEDICAID STAND ADULT
--- OUTSIDE RECORDS SUMMARY | 2024-07-21 08:47 | XMS_ITS | Encounter Summary ---
Author Organization [employer] [facility] Address [address] [place] [address] Care Team Providers Care Hot Die Press Feeder Name Role Phone Unavailable Primary Care Provider [...]
--- OUTSIDE RECORDS SUMMARY | 2024-07-21 08:47 | XMS_ITS | Clinical Summary ---
Author Organization [facility] Address [address] [place] [address] Care Team Providers Care Log Washer Name Role Phone Beryl Berkowitz MD Primary Care Provider [phone] Allergies No known active allergies Medications amoxicillin-cla [...] this topic Insurance MEDICAID OUT OF STATE [facility] Care Teams Log Washer Relationship Specialty Start Date End Date Beryl Berkowitz MD [address] [place] [address] PCP - General Family Medicine 07/28/22
--- OUTSIDE RECORDS SUMMARY | 2024-07-21 08:47 | XMS_ITS | Encounter Summary ---
Author Organization [employer] [facility] Address [address]t [place] [address] Care Team Providers Care Food Service Associate Name Role Phone Unavailable Primary Care Provider Unavailabl e Encounter Details Date Type Department Care Team (Latest Contact Info) Description 10/12/2018 Abstract [facility] CONVERSIONS Dental, Provider, DDS Social History Tobacco [...]
== END 2024-07-21 08:49 | disposition home or self-care (01) ==
LOC: HO.HMCH 08:26
PROVIDERS: PCP Internal Medicine; Visit Provider Internal Medicine
DX: J30.1 Allergic rhinitis due to pollen (principal); E11.9 Type 2 diabetes mellitus without complications; I63.412 Cerebral infarction due to embolism of left middle cerebral artery; I10 Essential (primary) hypertension; E78.2 Mixed hyperlipidemia; M54.50 Low back pain, unspecified

== ENCOUNTER → 2024-07-21 09:25 | Outpatient (BNV) | payer OTHER, SELFPAY | PROVIDERS: PCP Internal Medicine; Visit Provider Radiology Diagnostic Radiology | DX: M54.50 Low back pain, unspecified (principal) | CPT/HCPCS: 72100 ==

== ENCOUNTER 2025-01-23 14:28 | Outpatient (REF) | payer OTHER, SELFPAY ==
--- OUTSIDE RECORDS SUMMARY | 2025-01-23 18:03 | XMS_ITS | Clinical Summary ---
Author Organization [facility] Address [address] [place] [address] Care Team Providers Care Aircraft Communicator Name Role Phone Beryl Berkowitz MD Primary Care Provider [phone] Allergies No known active allergies Medications amoxicillin-cla [...] 69 07/29/2022 12:29 AM EDT Temperature 36.3 C (97.3 F) 07/29/2022 12:29 AM EDT Respiratory Rate 18 07/29/2022 12:29 AM EDT [...] Vaccine (1 of 2) 01/07/2012 Influenza Vaccine 10/28/2024 COVID-19 Vaccine (1 - 2023-2 5 season) 2024 RSV Vaccine 50 years and old er and Patients (1 - 1-dose 75+ series) 2037 Hepatitis B Vaccines Aged Out No long er eligible based on patient's age to complete this topic Insurance MEDICAID OUT OF STATE [facility] Care Teams Aircraft Communicator Relationship Specialty Start Date End Date Beryl Berkowitz MD [address] [place] [address] PCP - General Family Medicine 07/28/22
--- OUTSIDE RECORDS SUMMARY | 2025-01-23 18:03 | XMS_ITS | Encounter Summary ---
Author Organization [employer] [facility] Address [address] [place] [address] Care Team Providers Care Electrical Test Engineer Name Role Phone Unavailable Primary Care Provider Unavailabl e Encounter Details Date Type Department Care Team (Latest Contact Info) Description 10/12/2018 Abstract [facility] CONVERSIONS Dental, Provider, DDS Social History [...]
--- OUTSIDE RECORDS SUMMARY | 2025-01-23 18:03 | XMS_ITS | Encounter Summary ---
Author Organization [employer] [facility] Address [address] [place] [address] Care Team Providers Care Master Certified Rv Technician Name Role Phone Unavailable Primary Care Provider [...]
--- OUTSIDE RECORDS SUMMARY | 2025-01-23 18:03 | XMS_ITS | Clinical Summary ---
Author Organization [employer] Address [address] [place] [address] 7[address] [place] [address] Care Team Providers Care Library Circulation Technician Name Role Phone Unavailable Primary Care [...] Panel 1962 SDOH Screening 1962 Sigmoidoscopy 1962 Disability Screening 1962 Alcohol/Substance Use Screening 1974 Hepatitis C Screening 01/07/1980 Zoster Vaccines (2 of 2) 12/18/2022 10/23/2022 Dental Oral Exam 11/27/2023 05/28/2023, 05/2022, 07/09/2021, Additional history exists Dental Prophylaxis 01/02/2024 07/02/2023, 0 10/30/2022, 08/29/2021, Additional history exists Dental X-Ray: Bitewings 05/28/2024 05/28/19 24, 10/30/2022, 07/09/2021, Additional history exists Tobacco Screening 07/01/2024 07/02/2023 COVID-19 Vaccine ( season) 2024 02/06/2021, 09/10/2020, 08/06/2020 Influenza Vaccine (#1) 2024 , 01/17/2022, 11/27/2020, Additional history exists Dental X-Ray: Full Mouth 10/31/2025 10/30/2022, 08/28 [...] patient's age to complete this topic Meningococcal B Vaccine Aged Out No l onger eligible based on patient's age to complete [...] Most Recently Relevant to Health Maintenance Insurance DENTAL-[facility] MEDICAID STAND ADULT
--- NOTE | 2025-01-24 07:37 | MHC.AU.HA3 ---
Hearing Instrument Follow-Up- Binaural Date of Visit: 01/24/25 Right Ear: Dwayne, Model, Color, Serial Number: Elba [place] iQ [id number] BTE SN: [id number] Color: Bronze Compliance Advisor Repair Warranty: 04/09/2021 Compliance Advisor Loss and Damage Warranty: 04/09/2021 [facility] Service Plan: Battery Size: 13 Learning Support Aide/Slim Tube: Earmold/Dome/CShell/SlimTip:Microsonic Canal Shell Type of Wax Guard: Dispensed By: [facility] Date of Fittin02/12/2018 Left Ear: Dwayne, Model, Color, Serial Number: Elba [employer] iQ [id number] BTE SN: [id number] Color: Bronze Compliance Advisor Repair Warranty: 04/09/2021 Compliance Advisor Loss and Damage Warranty: 04/09/2021 [facility] Service Plan: Battery Size: 13 Learning Support Aide/Slim Tube: Earmold/Dome/CShell/SlimTip: Microsonic Canal Shell Type of Wax Guard: Dispensed By: [facility] Date of Fittin02/12/2018 Follow-Up Summary: Right YOO/EM dropped off 01/23/2025, assessed on 01/24/2025. Broken tone hook. Tubing hard/discolored. Cleaned YOO (1). Cleaned EM (1). Replaced tubing (1). Replaced tone hook (1) 40363 x4. Vacuumed microphones. Ran through dehumidifier. Listening check demonstrated YOO amplifying clearly. To front office for sampler pickup. Recommendations: Hearing instrument follow-up or maintenance as needed. Please contact our clinic with any questions or concerns. Diagnosis Code(s): Primary Diagnosis: H90.6 Mixed Hearing Loss, Bilateral Signature: Provider: Silvia Allen, [facility]
== END 2025-01-23 14:29 | disposition home or self-care (01) ==
LOC: HO.HAP 14:28
PROVIDERS: Visit Provider Internal Medicine
DX: Z46.1 Encounter for fitting and adjustment of hearing aid (principal); H90.6 Mixed conductive and sensorineural hearing loss, bilateral
CPT/HCPCS: V5266

== ENCOUNTER 2025-02-03 15:31 | Outpatient (REF) | payer OTHER, SELFPAY ==
--- OUTSIDE RECORDS SUMMARY | 2025-02-03 16:35 | XMS_ITS | Encounter Summary ---
Author Organization [employer] [facility] Address [address] [place] [address] Care Team Providers Care Media Center Assistant Name Role Phone Unavailable Primary Care Provider [...]
--- OUTSIDE RECORDS SUMMARY | 2025-02-03 16:35 | XMS_ITS | Clinical Summary ---
Author Organization [facility] Address [address] [place] [address] Care Team Providers Care Food Equipment Service Technician Name Role Phone Beryl Berkowitz MD Primary Care Provider [phone] Allergies No known active allergies Medications amoxicillin-cla [...] this topic Insurance MEDICAID OUT OF STATE [place] Care Teams Food Equipment Service Technician Relationship Specialty Start Date End Date Beryl Berkowitz MD [address] [place] [address] PCP - General Family Medicine 07/28/22
--- OUTSIDE RECORDS SUMMARY | 2025-02-03 16:35 | XMS_ITS | Clinical Summary ---
Author Organization [employer] Address [address] [place] [address] [address] [place] [address] Care Team Providers Care Councilperson Name Role Phone Unavailable Primary Care Provider [...] Most Recently Relevant to Health Maintenance Insurance [facility]AL-[facility] MEDICAID STAND ADULT
--- OUTSIDE RECORDS SUMMARY | 2025-02-03 16:35 | XMS_ITS | Encounter Summary ---
Author Organization [employer] [facility] Address [address] [place] [address] Care Team Providers Care Spot Checker Name Role Phone Unavailable Primary Care Provider Unavailabl e Encounter Details Date Type Department Care Team (Latest Contact Info) Description 10/12/2018 Abstract [facility] CONVERSIONS Dental, Provider, DDS Social History [...]
== END 2025-02-03 15:32 | disposition home or self-care (01) ==
LOC: HO.HAP 15:31
PROVIDERS: Visit Provider Internal Medicine
DX: Z13.89 Encounter for screening for other disorder (principal)